=== PATIENT | male | born 1950 | race Caucasian/White ===

== ENCOUNTER 2018-12-08 09:49 | Inpatient (IN) ==
[~2018-12-08 09:49] MED LIST: GENTAMICIN INJ 160 MG in SODIUM CHLORIDE 0.9% 100 ML IV ONE; LEVOFLOXACIN 500 MG TABLET PO ONE
[2018-12-08] MEDS ORDERED: FAMOTIDINE 20 MG TABLET PO ONE (10:11)
[2018-12-08] MEDS ORDERED: DIAZEPAM 5 MG TABLET PO ONE (10:11)
[2018-12-08] MEDS ORDERED: LACTATED RINGERS 1,000 ML IV SCH (10:30)
[2018-12-08] MEDS ORDERED: DIAZEPAM 5 MG TABLET ONE (10:52)
[2018-12-08] MEDS ORDERED: LEVOFLOXACIN 500 MG TABLET ONE (10:53)
[2018-12-08] MEDS ORDERED: GENTAMICIN 80 MG/2 ML VIAL ONE (10:53)
[2018-12-08] MEDS ORDERED: FAMOTIDINE 20 MG TABLET ONE (10:53)
[2018-12-08] MEDS ORDERED: oxyCODONE/ACETAMINOPHEN 5-325 MG TABLET PO PRN (14:19)
[2018-12-08] MEDS ORDERED: diphenhydrAMINE 50 MG/1 ML VIAL IV PRN (14:19)
[2018-12-08] MEDS ORDERED: ONDANSETRON 4 MG/2 ML VIAL IV PRN ×2 (14:19→14:54)
[2018-12-08] MEDS ORDERED: HYDROmorphone 2 MG/1 ML VIAL IV PRN ×2 (14:23→14:54)
[2018-12-08] MEDS ORDERED: BELLADONNA/OPIUM 30 MG SUPP RECTAL PRN (14:24)
[2018-12-08] MEDS ORDERED: OXYBUTYNIN XL 5 MG TABLET PO PRN (14:24)
[2018-12-08] MEDS ORDERED: SEVOFLURANE 1 UNIT/15 MINUTE INH ONE (14:42)
[2018-12-08] MEDS ORDERED: PROPOFOL 200 MG/20 ML VIAL IV ONE (14:42)
[2018-12-08] MEDS ORDERED: fentaNYL 100 MCG/2 ML VIAL ONE (14:43)
[2018-12-08] MEDS ORDERED: ROCURONIUM 100 MG/10 ML VIAL IV ONE (14:43)
[2018-12-08] MEDS ORDERED: SUCCINYLCHOLINE 200 MG/10 ML VIAL ONE (14:43)
[2018-12-08] MEDS ORDERED: PHENYLEPHRINE 1 MG/10 ML SYRINGE IV ONE (14:43)
[2018-12-08] MEDS ORDERED: DEXAMETHASONE 4 MG/1 ML VIAL ONE (14:43)
[2018-12-08] MEDS ORDERED: LACTATED RINGERS 1,000 ML IV ONE (14:43)
[2018-12-08] MEDS ORDERED: ONDANSETRON 4 MG/2 ML VIAL ONE (14:43)
[2018-12-08 14:54] LABS: Basophils # 0.1 10*3/uL (0.0-0.2); Basophils % 0.5 % (0.0-0.8); Eosinophils # 0.1 10*3/uL (0.0-0.87); Eosinophils % 0.8 % (0.00-10.9); Hematocrit 42.4 VOL% (42.0-52.0); Hemoglobin 13.6 GM/DL (14.0-18.0); Immature Granulocytes % 0.7 %; Immature Granulocytes Absolute 0.11 #; Lymphocytes # 1.8 10*3/uL (1.4-4.0); Lymphocytes % 11.9 % (21.2-54.2); Mean Corpuscular HGB Conc 32.1 GM/DL (32-36); Mean Corpuscular Volume 91.6 FL (87-102); Mean Platelet Volume 9.1 FL (9.6-12.0); Monocytes % 5.5 % (1.7-12.7); Neutrophils % 80.6 % (38.7-73.9); Platelet Count 204 T/CUMM (130-400); Red Blood Count 4.63 MC/CUMM (3.8-5.5); Red Cell Distribution Width 13.3 % (9.3-17.3); White Blood Count 15.4 T/CUMM (4-12)
[2018-12-08] MEDS: ACETAMINOPHEN 325 MG TABLET PO SCH ×2 (16:08→20:33)
[2018-12-08] MEDS: SODIUM CHLORIDE 0.9% 1,000 ML IV SCH (16:18)
[2018-12-08 17:00] LABS: Calcium 7.5 MG/DL (8.5-10.1); Osmolality,Calculated 270.2 MOS/KG (273-304)
[2018-12-08] MEDS: CIPROFLOXACIN 500 MG TABLET PO SCH (20:32)
[2018-12-08] MEDS: FAMOTIDINE 20 MG TABLET PO SCH (20:33)
[2018-12-08] MEDS: DOCUSATE SODIUM 100 MG CAPSULE PO SCH (20:33)
[2018-12-08] MEDS: ceFAZolin 1,000 MG in SYRINGE 1 EACH IV SCH (22:14)
[2018-12-09] MEDS: SODIUM CHLORIDE 0.9% 1,000 ML IV SCH ×3 (00:18→15:01)
[2018-12-09] MEDS: ACETAMINOPHEN 325 MG TABLET PO SCH ×4 (03:03→20:18)
[2018-12-09 05:42] LABS: Calcium 7.6 MG/DL (8.5-10.1); Osmolality,Calculated 279.7 MOS/KG (273-304)
[2018-12-09 05:51] LABS: Basophils % 0.1 % (0.0-0.8); Eosinophils % 0.1 % (0.00-10.9); Hematocrit 39.7 VOL% (42.0-52.0); Hemoglobin 12.9 GM/DL (14.0-18.0); Immature Granulocytes % 1.4 %; Immature Granulocytes Absolute 0.22 #; Lymphocytes # 0.8 10*3/uL (1.4-4.0); Lymphocytes % 4.9 % (21.2-54.2); Mean Corpuscular HGB Conc 32.5 GM/DL (32-36); Mean Corpuscular Volume 90.4 FL (87-102); Mean Platelet Volume 9.8 FL (9.6-12.0); Monocytes % 9.6 % (1.7-12.7); Neutrophils % 83.9 % (38.7-73.9); Platelet Count 188 T/CUMM (130-400); Red Blood Count 4.39 MC/CUMM (3.8-5.5); Red Cell Distribution Width 13.2 % (9.3-17.3); White Blood Count 15.4 T/CUMM (4-12)
[2018-12-09] MEDS: ceFAZolin 1,000 MG in SYRINGE 1 EACH IV SCH (06:34)
[2018-12-09 06:45] LABS: Band Neutrophils 1 % (0-10); Lymphocytes 5 % (20-55); Metamyelocytes 1 %; Platelet Estimate Normal; Segmented Neutrophils 84 % (50-85); Total Cells Counted 100
[2018-12-09] MEDS ORDERED: LISINOPRIL 10 MG TABLET PO SCH (09:00)
[2018-12-09] MEDS: DOCUSATE SODIUM 100 MG CAPSULE PO SCH ×2 (09:34→20:18)
[2018-12-09] MEDS: FINASTERIDE 5 MG TABLET PO SCH (09:34)
[2018-12-09] MEDS: CIPROFLOXACIN 500 MG TABLET PO SCH ×2 (09:34→20:18)
[2018-12-09] MEDS: ATORVASTATIN 20 MG TABLET PO SCH (09:35)
[2018-12-09 09:42] LABS: Calcium 7.4 MG/DL (8.5-10.1); Osmolality,Calculated 282.4 MOS/KG (273-304)
[2018-12-09] MEDS: FAMOTIDINE 20 MG TABLET PO SCH (20:18)
[2018-12-10] MEDS: SODIUM CHLORIDE 0.9% 1,000 ML IV SCH ×2 (00:13→22:18)
[2018-12-10] MEDS: ACETAMINOPHEN 325 MG TABLET PO SCH ×4 (03:10→20:14)
[2018-12-10 05:14] LABS: Basophils % 0.3 % (0.0-0.8); Eosinophils # 0.1 10*3/uL (0.0-0.87); Hematocrit 38.3 VOL% (42.0-52.0); Immature Granulocytes % 0.2 %; Immature Granulocytes Absolute 0.02 #; Lymphocytes % 9.3 % (21.2-54.2); Mean Corpuscular HGB Conc 31.3 GM/DL (32-36); Mean Corpuscular Volume 91.4 FL (87-102); Mean Platelet Volume 9.9 FL (9.6-12.0); Monocytes % 12.3 % (1.7-12.7); Neutrophils % 76.9 % (38.7-73.9); Platelet Count 181 T/CUMM (130-400); Red Blood Count 4.19 MC/CUMM (3.8-5.5); Red Cell Distribution Width 13.9 % (9.3-17.3); White Blood Count 10.3 T/CUMM (4-12)
[2018-12-10 05:35] LABS: Calcium 7.5 MG/DL (8.5-10.1); Osmolality,Calculated 296.6 MOS/KG (273-304)
[2018-12-10] MEDS: DOCUSATE SODIUM 100 MG CAPSULE PO SCH ×2 (08:50→22:14)
[2018-12-10] MEDS: ATORVASTATIN 20 MG TABLET PO SCH (08:50)
[2018-12-10] MEDS: FINASTERIDE 5 MG TABLET PO SCH (08:50)
[2018-12-10] MEDS: DEXTROSE 5% NACL 0.45% 1,000 ML IV SCH (08:57)
[2018-12-10] MEDS: FAMOTIDINE 20 MG TABLET PO SCH (22:14)
[2018-12-11] MEDS: DEXTROSE 5% NACL 0.45% 1,000 ML IV SCH ×4 (01:16→22:48)
[2018-12-11] MEDS: ACETAMINOPHEN 325 MG TABLET PO SCH ×4 (02:16→21:07)
[2018-12-11 06:15] LABS: Calcium 7.9 MG/DL (8.5-10.1)
[2018-12-11] MEDS ORDERED: cefTRIAXone 1,000 MG in SYRINGE 1 EACH IV ONE (08:06)
[2018-12-11] MEDS ORDERED: SEVOFLURANE 1 UNIT/15 MINUTE INH ONE (10:03)
[2018-12-11] MEDS ORDERED: PROPOFOL 200 MG/20 ML VIAL IV ONE (10:03)
[2018-12-11] MEDS ORDERED: PHENYLEPHRINE 1 MG/10 ML SYRINGE IV ONE (10:04)
[2018-12-11] MEDS ORDERED: MIDAZOLAM 2 MG/2 ML VIAL ONE (10:04)
[2018-12-11] MEDS ORDERED: DEXAMETHASONE 4 MG/1 ML VIAL ONE (10:04)
[2018-12-11] MEDS ORDERED: ACETAMINOPHEN 1,000 MG/100 ML VIAL IV ONE (10:04)
[2018-12-11] MEDS ORDERED: ONDANSETRON 4 MG/2 ML VIAL ONE (10:04)
[2018-12-11] MEDS ORDERED: fentaNYL 100 MCG/2 ML VIAL ONE (10:04)
[2018-12-11] MEDS: FINASTERIDE 5 MG TABLET PO SCH (10:38)
[2018-12-11] MEDS: ATORVASTATIN 20 MG TABLET PO SCH (10:38)
[2018-12-11] MEDS: DOCUSATE SODIUM 100 MG CAPSULE PO SCH ×2 (10:38→21:07)
[2018-12-11] MEDS ORDERED: LIDOCAINE 2% TOP JELLY 5 ML TUBE TOP ONE (13:30)
[2018-12-11 16:03] LABS: Apearance,Urine CLEAR (Clear); Bilirubin,Urine Negative (Negative); Blood, Urine Large mg/dL (Negative); Glucose,Urine (UA) Negative (Negative); Ketones,Urine Negative (Negative); Nitrite,Urine Negative (Negative); Protein,Urine 30 MG/DL; RBC,Urine 4527 /HPF (0-4); Squamous Epithelial Cell,Urine Occasional /HPF (0-10); Urine Color Red (Yellow); Urine Urobilinogen < 2.0 EU/DL (0.2-1.0); WBC,Urine 127 /HPF (0-6)
[2018-12-11] MEDS: FAMOTIDINE 20 MG TABLET PO SCH (21:07)
[2018-12-12] MEDS: ACETAMINOPHEN 325 MG TABLET PO SCH ×2 (02:54→08:38)
[2018-12-12 04:32] LABS: Basophils % 0.1 % (0.0-0.8); Eosinophils % 0.2 % (0.00-10.9); Hematocrit 34.4 VOL% (42.0-52.0); Hemoglobin 10.9 GM/DL (14.0-18.0); Immature Granulocytes % 0.5 %; Immature Granulocytes Absolute 0.07 #; Lymphocytes # 1.2 10*3/uL (1.4-4.0); Lymphocytes % 8.4 % (21.2-54.2); Mean Corpuscular HGB Conc 31.7 GM/DL (32-36); Mean Platelet Volume 10.1 FL (9.6-12.0); Monocytes % 10.7 % (1.7-12.7); Neutrophils % 80.1 % (38.7-73.9); Platelet Count 163 T/CUMM (130-400); Red Blood Count 3.78 MC/CUMM (3.8-5.5); Red Cell Distribution Width 13.3 % (9.3-17.3); White Blood Count 14.1 T/CUMM (4-12)
[2018-12-12 04:54] LABS: Calcium 7.5 MG/DL (8.5-10.1); Osmolality,Calculated 286.3 MOS/KG (273-304)
[2018-12-12] MEDS: DOCUSATE SODIUM 100 MG CAPSULE PO SCH (08:38)
[2018-12-12] MEDS: FINASTERIDE 5 MG TABLET PO SCH (08:38)
[2018-12-12] MEDS: ATORVASTATIN 20 MG TABLET PO SCH (08:38)
[2018-12-12] MEDS: DEXTROSE 5% NACL 0.45% 1,000 ML IV SCH (10:08)
[2018-12-12] MEDS ORDERED: cefTRIAXone 1,000 MG in SYRINGE 1 EACH IV ONE (11:17)
[2018-12-12 13:22] VITALS: BP 121/70
[2018-12-12 15:09] LABS: Calcium 7.5 MG/DL (8.5-10.1); Osmolality,Calculated 281.4 MOS/KG (273-304)
[2018-12-15 08:02] LABS: Calcium 8.8 MG/DL (8.5-10.1); Osmolality,Calculated 281.4 MOS/KG (273-304)
== END 2018-12-12 16:42 | disposition home or self-care (01) | DRG 660 ==
LOC: N.5E 09:49 → N.OR 09:49 → N.SDSINP 09:51 → N.5E 15:30
PROVIDERS: ADMIT Surgery; ATTEND Surgery

== ENCOUNTER 2022-05-13 14:32 | Observation (INO) ==
[2022-05-13] MEDS ORDERED: ONDANSETRON 4 MG/2 ML VIAL IV STA (21:13)
[2022-05-13] MEDS ORDERED: ASPIRIN 325 MG TABLET PO STA (21:13)
[2022-05-13 21:35] LABS: Basophils % 0.3 % (0.0-0.8); Eosinophils # 0.1 10*3/uL (0.0-0.87); Eosinophils % 1.6 % (0.00-10.9); Hematocrit 42.7 VOL% (42.0-52.0); Hemoglobin 13.5 GM/DL (14.0-18.0); Immature Granulocytes % 0.4 %; Immature Granulocytes Absolute 0.03 #; Lymphocytes # 0.9 10*3/uL (1.4-4.0); Lymphocytes % 13.1 % (21.2-54.2); Mean Corpuscular HGB Conc 31.6 GM/DL (32-36); Mean Corpuscular Volume 95.1 FL (87-102); Mean Platelet Volume 8.5 FL (9.6-12.0); Monocytes % 14.5 % (1.7-12.7); Neutrophils % 70.1 % (38.7-73.9); Platelet Count 180 T/CUMM (130-400); Red Blood Count 4.49 MC/CUMM (3.8-5.5); Red Cell Distribution Width 14.7 % (9.3-17.3)
[2022-05-13 21:45] LABS: PT Patient Result 11.2 SECS (10.1-12.1)
[2022-05-13 22:07] LABS: Alanine Aminotransferase 19 U/L (16-61); Albumin 3.2 G/DL (3.4-5.0); Alkaline Phosphatase 72 U/L (45-117); Aspartate Amino Transferase 20 U/L (0-37); Blood Urea Nitrogen 20 MG/DL (7-18); Calcium 8.6 MG/DL (8.5-10.1); Carbon Dioxide 27 MMOL/L (21-32); Chloride 107 MMOL/L (98-107); Glucose 86 MG/DL (74-106); Osmolality,Calculated 280.4 MOS/KG (273-304); Potassium 4.2 MMOL/L (3.5-5.1); Sodium 140 MMOL/L (136-145); Total Protein 6.8 G/DL (6.4-8.2)
[2022-05-13 22:37] LABS: Mucus,Urine Occasional /LPF (Occasional); RBC,Urine 14 /HPF (0-4); Squamous Epithelial Cell,Urine Occasional /HPF (0-10)
[2022-05-13 22:41] LABS: Bilirubin,Urine Small mg/dL (Negative); Blood, Urine Trace mg/dL (Negative); Glucose,Urine (UA) Negative (Negative); Ketones,Urine Trace mg/dL (Negative); Nitrite,Urine Negative (Negative); Protein,Urine 30 mg/dL (Negative); Urine Appearance Clear (Clear); Urine Color Yellow (Yellow); Urine Specific Gravity >= 1.030 (1.001-1.035); Urine pH 5.5 (4.5-8.0)
[2022-05-13 22:44] LABS: Barbiturates Screen,Urine Negative (Negative); Benzodiazepines Screen,Urine Negative (Negative); Cannabinoid Screen,Urine Negative (Negative); Opiate Screen,Urine Negative (Negative); Phencyclidine Screen,Urine Negative (Negative)
[2022-05-14] MEDS ORDERED: DEXTROSE 10% 250 ML BAG IV PRN (00:14)
[2022-05-14] MEDS ORDERED: GLUCAGON 1 MG VIAL IM PRN (00:14)
[2022-05-14] MEDS ORDERED: hydrALAZINE 20 MG/1 ML VIAL IV PRN (00:19)
[2022-05-14] MEDS ORDERED: ZALEPLON 5 MG CAPSULE PO PRN (00:19)
[2022-05-14] MEDS ORDERED: ONDANSETRON 4 MG/2 ML VIAL IV PRN (00:19)
[2022-05-14] MEDS ORDERED: DOCUSATE SODIUM 100 MG CAPSULE PO PRN (00:19)
[2022-05-14] MEDS ORDERED: diphenhydrAMINE CAP 25 MG CAPSULE PO PRN (00:19)
[2022-05-14] MEDS ORDERED: ACETAMINOPHEN 325 MG TABLET PO PRN (00:19)
[2022-05-14] MEDS ORDERED: NICOTINE 21 MG/24 HR PATCH TRANSDERM PRN (00:19)
[2022-05-14] MEDS ORDERED: guaiFENesin/DM ER 600-30 MG TABLET PO PRN (00:19)
[2022-05-14] MEDS ORDERED: SODIUM CHLORIDE 0.9% 1,000 ML IV SCH (00:30)
[2022-05-14 04:53] LABS: Basophils % 0.4 % (0.0-0.8); Eosinophils # 0.2 10*3/uL (0.0-0.87); Eosinophils % 3.2 % (0.00-10.9); Hematocrit 40.2 VOL% (42.0-52.0); Hemoglobin 12.6 GM/DL (14.0-18.0); Immature Granulocytes % 0.4 %; Immature Granulocytes Absolute 0.03 #; Lymphocytes # 1.1 10*3/uL (1.4-4.0); Lymphocytes % 15.4 % (21.2-54.2); Mean Corpuscular HGB Conc 31.3 GM/DL (32-36); Mean Corpuscular Volume 95.7 FL (87-102); Mean Platelet Volume 8.9 FL (9.6-12.0); Monocytes # 0.9 10*3/uL (0.11-0.8); Monocytes % 13.8 % (1.7-12.7); Neutrophils % 66.8 % (38.7-73.9); Platelet Count 166 T/CUMM (130-400); Red Cell Distribution Width 14.6 % (9.3-17.3); White Blood Count 6.8 T/CUMM (4-12)
[2022-05-14 05:09] LABS: Calcium 8.7 MG/DL (8.5-10.1); Osmolality,Calculated 277.5 MOS/KG (273-304); Potassium 3.6 MMOL/L (3.5-5.1)
[2022-05-14] MEDS ORDERED: CLOPIDOGREL 75 MG TABLET PO SCH (09:00)
[2022-05-14] MEDS ORDERED: PANTOPRAZOLE 40 MG TABLET PO SCH (09:00)
[2022-05-14] MEDS ORDERED: ATORVASTATIN 20 MG TABLET PO SCH (09:00)
[2022-05-14] MEDS ORDERED: FINASTERIDE 5 MG TABLET PO SCH (09:00)
[2022-05-14] MEDS ORDERED: HEPARIN 5,000 UNIT/1 ML VIAL SUBCUT SCH (09:00)
[2022-05-14] MEDS ORDERED: predniSONE 5 MG TABLET PO SCH (09:00)
[2022-05-14] MEDS ORDERED: lisinopriL 10 MG TABLET PO SCH (09:00)
[2022-05-14 13:20] VITALS: BP 138/102
[2022-05-20] MEDS ORDERED: METHOTREXATE 2.5 MG TABLET PO SCH (09:00)
== END 2022-05-14 15:43 | disposition home or self-care (01) ==
LOC: N.ED 14:32 → N.2W 14:32
PROVIDERS: ADMIT Internal Medicine; ATTEND Internal Medicine

== ENCOUNTER 2022-08-06 11:38 | Inpatient (IN) ==
[2022-08-06] MEDS ORDERED: ALBUTEROL 2.5 MG/3 ML NEB RESP TX STA (16:41)
[2022-08-06 16:46] LABS: Basophils % 0.3 % (0.0-0.8); Eosinophils # 0.1 10*3/uL (0.0-0.87); Eosinophils % 0.7 % (0.00-10.9); Hemoglobin 13.5 GM/DL (14.0-18.0); Immature Granulocytes % 0.5 %; Immature Granulocytes Absolute 0.06 #; Lymphocytes # 1.1 10*3/uL (1.4-4.0); Lymphocytes % 9.3 % (21.2-54.2); Mean Corpuscular HGB Conc 32.9 GM/DL (32-36); Mean Corpuscular Volume 97.2 FL (87-102); Mean Platelet Volume 8.7 FL (9.6-12.0); Monocytes # 0.9 10*3/uL (0.11-0.8); Monocytes % 7.6 % (1.7-12.7); Neutrophils % 81.6 % (38.7-73.9); Platelet Count 395 T/CUMM (130-400); Red Blood Count 4.22 MC/CUMM (3.8-5.5); Red Cell Distribution Width 14.2 % (9.3-17.3); White Blood Count 11.8 T/CUMM (4-12)
[2022-08-06] MEDS ORDERED: LEVOFLOXACIN INJ 500 MG/100 ML PREMIX IV STA (16:46)
[2022-08-06] MEDS ORDERED: methylPREDNISolone SOD SUC 125 MG/2 ML VIAL IV STA (16:47)
[2022-08-06 17:02] LABS: Osmolality,Calculated 277.7 MOS/KG (273-304); Potassium 3.5 MMOL/L (3.5-5.1)
[2022-08-06 17:59] LABS: Albumin 3.1 G/DL (3.4-5.0); Bilirubin,Direct 0.16 MG/DL (0.0-0.20); Bilirubin,Indirect 0.4 MG/DL (0.0-1.0); Bilirubin,Total 0.6 MG/DL (0.20-1.00); Total Protein 8.2 G/DL (6.4-8.2)
[2022-08-06] MEDS ORDERED: CALCIUM CARBONATE CHEW 500 MG TABLET PO PRN (18:28)
[2022-08-06] MEDS ORDERED: ACETAMINOPHEN 325 MG TABLET PO PRN (18:28)
[2022-08-06] MEDS ORDERED: DOCUSATE SODIUM 100 MG CAPSULE PO PRN (18:28)
[2022-08-06] MEDS: ALBUTEROL/IPRATROPIUM 3 ML NEB RESP TX SCH (19:30)
[2022-08-06] MEDS: hydrALAZINE 20 MG/1 ML VIAL IV PRN (21:05)
[2022-08-06] MEDS: ENOXAPARIN 40 MG/0.4 ML SYRINGE SUBCUT SCH (21:25)
[2022-08-07] MEDS: ALBUTEROL/IPRATROPIUM 3 ML NEB RESP TX SCH ×4 (00:42→19:38)
[2022-08-07 01:57] LABS: Basophils % 0.1 % (0.0-0.8); Hematocrit 36.3 VOL% (42.0-52.0); Hemoglobin 11.9 GM/DL (14.0-18.0); Immature Granulocytes Absolute 0.11 #; Lymphocytes # 0.4 10*3/uL (1.4-4.0); Lymphocytes % 3.3 % (21.2-54.2); Mean Corpuscular HGB Conc 32.8 GM/DL (32-36); Mean Corpuscular Volume 97.3 FL (87-102); Mean Platelet Volume 8.7 FL (9.6-12.0); Monocytes # 0.1 10*3/uL (0.11-0.8); Monocytes % 1.1 % (1.7-12.7); Neutrophils % 94.5 % (38.7-73.9); Platelet Count 344 T/CUMM (130-400); Red Blood Count 3.73 MC/CUMM (3.8-5.5); Red Cell Distribution Width 14.3 % (9.3-17.3); White Blood Count 10.9 T/CUMM (4-12)
[2022-08-07 02:13] LABS: Calcium 8.9 MG/DL (8.5-10.1); Potassium 3.8 MMOL/L (3.5-5.1)
[2022-08-07 02:46] LABS: Lymphocytes 3 % (20-55); Platelet Estimate Normal; Total Cells Counted 100
[2022-08-07] MEDS: cefTRIAXone 1,000 MG in SODIUM CHLORIDE 0.9% 100 ML IV SCH (17:10)
[2022-08-07] MEDS: methylPREDNISolone SOD SUC 40 MG/1 ML VIAL IV SCH ×2 (17:11→23:46)
[2022-08-07] MEDS: ENOXAPARIN 40 MG/0.4 ML SYRINGE SUBCUT SCH (21:21)
[2022-08-08] MEDS: ALBUTEROL/IPRATROPIUM 3 ML NEB RESP TX SCH ×4 (01:03→19:52)
[2022-08-08 08:33] LABS: Basophils % 0.1 % (0.0-0.8); Hematocrit 38.4 VOL% (42.0-52.0); Hemoglobin 12.4 GM/DL (14.0-18.0); Immature Granulocytes Absolute 0.15 #; Lymphocytes # 0.7 10*3/uL (1.4-4.0); Lymphocytes % 4.7 % (21.2-54.2); Mean Corpuscular HGB Conc 32.3 GM/DL (32-36); Mean Corpuscular Volume 100.3 FL (87-102); Mean Platelet Volume 8.9 FL (9.6-12.0); Monocytes # 0.4 10*3/uL (0.11-0.8); Monocytes % 2.9 % (1.7-12.7); Neutrophils % 91.3 % (38.7-73.9); Platelet Count 349 T/CUMM (130-400); Red Blood Count 3.83 MC/CUMM (3.8-5.5); Red Cell Distribution Width 14.2 % (9.3-17.3); White Blood Count 15.1 T/CUMM (4-12)
[2022-08-08 08:54] LABS: Lymphocytes 2 % (20-55); Platelet Estimate Adequate; Total Cells Counted 100
[2022-08-08] MEDS: PANTOPRAZOLE 40 MG TABLET PO SCH (08:58)
[2022-08-08] MEDS: ATORVASTATIN 20 MG TABLET PO SCH (08:58)
[2022-08-08] MEDS: ASPIRIN EC 81 MG TABLET PO SCH (08:58)
[2022-08-08] MEDS: methylPREDNISolone SOD SUC 40 MG/1 ML VIAL IV SCH ×2 (08:59→16:19)
[2022-08-08] MEDS: FOLIC ACID 1 MG TABLET PO SCH (08:59)
[2022-08-08] MEDS ORDERED: predniSONE 5 MG TABLET PO SCH (09:00)
[2022-08-08] MEDS ORDERED: LEVOFLOXACIN INJ 500 MG/100 ML PREMIX IV SCH (09:00)
[2022-08-08 09:07] LABS: Calcium 9.6 MG/DL (8.5-10.1); Osmolality,Calculated 276.2 MOS/KG (273-304); Potassium 4.3 MMOL/L (3.5-5.1)
[2022-08-08] MEDS ORDERED: FUROSEMIDE 40 MG/4 ML VIAL IV ONE (10:00)
[2022-08-08] MEDS ORDERED: REMDESIVIR 200 MG in SODIUM CHLORIDE 0.9% 210 ML IV ONE (11:00)
[2022-08-08 11:14] LABS: Ferritin 720.2 ng/mL (26-388)
[2022-08-08] MEDS: ENOXAPARIN 40 MG/0.4 ML SYRINGE SUBCUT SCH ×2 (11:22→21:05)
[2022-08-08] MEDS: ASCORBIC ACID 500 MG TABLET PO SCH ×2 (11:22→21:04)
[2022-08-08] MEDS: CETIRIZINE 10 MG TABLET PO SCH (11:23)
[2022-08-08] MEDS ORDERED: CHOLECALCIFEROL 1,000 UNIT TABLET PO SCH (12:00)
[2022-08-08] MEDS ORDERED: ZINC GLUCONATE 50 MG TABLET PO SCH (12:00)
[2022-08-08] MEDS: cefTRIAXone 1,000 MG in SODIUM CHLORIDE 0.9% 100 ML IV SCH (16:19)
[2022-08-08] MEDS: guaiFENesin/DM ER 600-30 MG TABLET PO PRN (21:04)
[2022-08-09] MEDS: methylPREDNISolone SOD SUC 40 MG/1 ML VIAL IV SCH ×5 (00:34→23:29)
[2022-08-09] MEDS: ALBUTEROL/IPRATROPIUM 3 ML NEB RESP TX SCH ×4 (00:40→19:08)
[2022-08-09 06:17] LABS: Basophils % 0.1 % (0.0-0.8); Hematocrit 38.8 VOL% (42.0-52.0); Immature Granulocytes % 1.3 %; Immature Granulocytes Absolute 0.21 #; Lymphocytes # 0.3 10*3/uL (1.4-4.0); Lymphocytes % 1.9 % (21.2-54.2); Mean Corpuscular HGB Conc 30.9 GM/DL (32-36); Mean Corpuscular Volume 102.9 FL (87-102); Mean Platelet Volume 8.7 FL (9.6-12.0); Monocytes # 0.8 10*3/uL (0.11-0.8); Monocytes % 4.7 % (1.7-12.7); Platelet Count 371 T/CUMM (130-400); Red Blood Count 3.77 MC/CUMM (3.8-5.5); White Blood Count 16.8 T/CUMM (4-12)
[2022-08-09 06:36] LABS: Calcium 9.4 MG/DL (8.5-10.1); Osmolality,Calculated 283.8 MOS/KG (273-304); Potassium 4.4 MMOL/L (3.5-5.1)
[2022-08-09 06:40] LABS: Ferritin 992.9 ng/mL (26-388)
[2022-08-09 06:52] LABS: Hypochromia Slight; Lymphocytes 2 % (20-55); Platelet Estimate Adequate; Total Cells Counted 100
[2022-08-09] MEDS ORDERED: methylPREDNISolone SOD SUC 40 MG/1 ML VIAL IV SCH (09:00)
[2022-08-09] MEDS: ZINC SULFATE 220 MG CAPSULE PO SCH (09:55)
[2022-08-09] MEDS: ASPIRIN EC 81 MG TABLET PO SCH (09:55)
[2022-08-09] MEDS: CETIRIZINE 10 MG TABLET PO SCH (09:55)
[2022-08-09] MEDS: ASCORBIC ACID 500 MG TABLET PO SCH ×2 (09:55→20:38)
[2022-08-09] MEDS: ATORVASTATIN 20 MG TABLET PO SCH (09:55)
[2022-08-09] MEDS: guaiFENesin/DM ER 600-30 MG TABLET PO PRN (09:55)
[2022-08-09] MEDS: FOLIC ACID 1 MG TABLET PO SCH (09:55)
[2022-08-09] MEDS: PANTOPRAZOLE 40 MG TABLET PO SCH (09:55)
[2022-08-09] MEDS: CHOLECALCIFEROL 5,000 UNIT TABLET PO SCH ×2 (09:56→20:38)
[2022-08-09] MEDS: LACTATED RINGERS 1,000 ML IV SCH ×2 (09:56→23:45)
[2022-08-09] MEDS: AZITHROMYCIN INJ 500 MG in SODIUM CHLORIDE 0.9% 250 ML IV SCH (09:56)
[2022-08-09] MEDS: ENOXAPARIN 40 MG/0.4 ML SYRINGE SUBCUT SCH ×2 (09:58→20:39)
[2022-08-09] MEDS ORDERED: REMDESIVIR 100 MG in SODIUM CHLORIDE 0.9% 100 ML IV SCH (10:00)
[2022-08-09] MEDS: cefTRIAXone 1,000 MG in SODIUM CHLORIDE 0.9% 100 ML IV SCH (16:30)
[2022-08-09] MEDS: MELATONIN 3 MG TABLET PO SCH (20:38)
[2022-08-10] MEDS: ALBUTEROL/IPRATROPIUM 3 ML NEB RESP TX SCH ×4 (00:54→19:19)
[2022-08-10] MEDS: guaiFENesin/DM ER 600-30 MG TABLET PO PRN (03:30)
[2022-08-10] MEDS: methylPREDNISolone SOD SUC 40 MG/1 ML VIAL IV SCH ×4 (05:06→23:38)
[2022-08-10 05:22] LABS: Basophils % 0.1 % (0.0-0.8); Hematocrit 36.4 VOL% (42.0-52.0); Hemoglobin 11.6 GM/DL (14.0-18.0); Immature Granulocytes % 0.7 %; Immature Granulocytes Absolute 0.13 #; Lymphocytes # 0.3 10*3/uL (1.4-4.0); Lymphocytes % 1.4 % (21.2-54.2); Mean Corpuscular HGB Conc 31.9 GM/DL (32-36); Mean Corpuscular Volume 100.6 FL (87-102); Mean Platelet Volume 9.1 FL (9.6-12.0); Monocytes # 1.1 10*3/uL (0.11-0.8); Monocytes % 6.3 % (1.7-12.7); Neutrophils % 91.5 % (38.7-73.9); Platelet Count 355 T/CUMM (130-400); Red Blood Count 3.62 MC/CUMM (3.8-5.5); Red Cell Distribution Width 14.2 % (9.3-17.3)
[2022-08-10 05:27] LABS: Calcium 9.1 MG/DL (8.5-10.1); Osmolality,Calculated 293.1 MOS/KG (273-304); Potassium 4.2 MMOL/L (3.5-5.1)
[2022-08-10 05:33] LABS: Ferritin 761.8 ng/mL (26-388)
[2022-08-10 06:18] LABS: Lymphocytes 2 % (20-55); Total Cells Counted 100
[2022-08-10] MEDS: AZITHROMYCIN INJ 500 MG in SODIUM CHLORIDE 0.9% 250 ML IV SCH (09:14)
[2022-08-10] MEDS: ENOXAPARIN 40 MG/0.4 ML SYRINGE SUBCUT SCH ×2 (09:15→21:32)
[2022-08-10] MEDS: ASCORBIC ACID 500 MG TABLET PO SCH ×2 (09:15→21:33)
[2022-08-10] MEDS: LACTATED RINGERS 1,000 ML IV SCH ×3 (09:15→21:40)
[2022-08-10] MEDS: FOLIC ACID 1 MG TABLET PO SCH (09:16)
[2022-08-10] MEDS: CHOLECALCIFEROL 5,000 UNIT TABLET PO SCH ×2 (09:16→21:33)
[2022-08-10] MEDS: ZINC SULFATE 220 MG CAPSULE PO SCH (09:16)
[2022-08-10] MEDS: ATORVASTATIN 20 MG TABLET PO SCH (09:16)
[2022-08-10] MEDS: CETIRIZINE 10 MG TABLET PO SCH (09:16)
[2022-08-10] MEDS: PANTOPRAZOLE 40 MG TABLET PO SCH (09:16)
[2022-08-10] MEDS: ASPIRIN EC 81 MG TABLET PO SCH (09:16)
[2022-08-10] MEDS ORDERED: guaiFENesin 200 MG/10 ML UDCUP PO PRN (15:36)
[2022-08-10] MEDS: cefTRIAXone 1,000 MG in SODIUM CHLORIDE 0.9% 100 ML IV SCH (16:25)
[2022-08-10 20:56] LABS: Arterial Base Excess iSTAT 3 MMOL/L (-2.5-2.5); Arterial Bicarbonate iSTAT 27.4 MMOL/L (20-26); Arterial O2 Saturation iSTAT 85 % (95-100); Arterial PCO2 iSTAT 41 MM HG (35-48); Arterial PO2 iSTAT 49 MM HG (80-95); Arterial Total CO2 iSTAT 29 MMO/L (23-27); Arterial pH iSTAT 7.436 (7.35-7.45)
[2022-08-10] MEDS: MELATONIN 3 MG TABLET PO SCH (21:32)
[2022-08-10] MEDS ORDERED: CLORAZEPATE 3.75 MG TABLET PO ONE (23:16)
[2022-08-10] MEDS: ACETAMINOPHEN 325 MG TABLET PO PRN (23:38)
[2022-08-10 23:47] LABS: Bilirubin,Urine Negative (Negative); Blood, Urine Negative (Negative); Glucose,Urine (UA) Negative (Negative); Ketones,Urine Negative (Negative); Nitrite,Urine Negative (Negative); Protein,Urine Negative (Negative); Urine Appearance Clear (Clear); Urine Color Yellow (Yellow); Urine Urobilinogen 0.2 eU/dL (<2.0); Urine pH 6.5 (4.5-8.0)
[2022-08-10 23:49] LABS: Bacteria,Urine Occasional /HPF (Few); Mucus,Urine Occasional /LPF (Occasional); RBC,Urine <1 /HPF (0-4); Squamous Epithelial Cell,Urine Occasional /HPF (0-10)
[2022-08-11] MEDS: ALBUTEROL/IPRATROPIUM 3 ML NEB RESP TX SCH ×4 (00:27→19:40)
[2022-08-11] MEDS: LACTATED RINGERS 1,000 ML IV SCH ×2 (01:24→13:47)
[2022-08-11 04:15] LABS: Basophils % 0.1 % (0.0-0.8); Hematocrit 35.9 VOL% (42.0-52.0); Hemoglobin 11.4 GM/DL (14.0-18.0); Immature Granulocytes % 1.5 %; Immature Granulocytes Absolute 0.26 #; Lymphocytes # 0.2 10*3/uL (1.4-4.0); Lymphocytes % 1.2 % (21.2-54.2); Mean Corpuscular HGB Conc 31.8 GM/DL (32-36); Mean Corpuscular Volume 99.7 FL (87-102); Mean Platelet Volume 8.8 FL (9.6-12.0); Monocytes # 0.9 10*3/uL (0.11-0.8); Monocytes % 5.2 % (1.7-12.7); Platelet Count 343 T/CUMM (130-400); Red Cell Distribution Width 14.4 % (9.3-17.3); White Blood Count 17.1 T/CUMM (4-12)
[2022-08-11 04:35] LABS: Lymphocytes 1 % (20-55); Platelet Estimate Normal; Total Cells Counted 100
[2022-08-11 04:42] LABS: Calcium 8.6 MG/DL (8.5-10.1); Osmolality,Calculated 286.4 MOS/KG (273-304); Potassium 4.6 MMOL/L (3.5-5.1)
[2022-08-11] MEDS: methylPREDNISolone SOD SUC 40 MG/1 ML VIAL IV SCH ×3 (05:00→18:13)
[2022-08-11] MEDS: ASPIRIN EC 81 MG TABLET PO SCH (09:03)
[2022-08-11] MEDS: FOLIC ACID 1 MG TABLET PO SCH (09:04)
[2022-08-11] MEDS: ZINC SULFATE 220 MG CAPSULE PO SCH (09:04)
[2022-08-11] MEDS: ENOXAPARIN 40 MG/0.4 ML SYRINGE SUBCUT SCH ×2 (09:04→20:56)
[2022-08-11] MEDS: PANTOPRAZOLE 40 MG TABLET PO SCH (09:04)
[2022-08-11] MEDS: ASCORBIC ACID 500 MG TABLET PO SCH ×2 (09:04→22:15)
[2022-08-11] MEDS: CHOLECALCIFEROL 5,000 UNIT TABLET PO SCH ×2 (09:04→22:15)
[2022-08-11] MEDS: ATORVASTATIN 20 MG TABLET PO SCH (09:04)
[2022-08-11] MEDS: CETIRIZINE 10 MG TABLET PO SCH (09:05)
[2022-08-11] MEDS: REMDESIVIR 100 MG in SODIUM CHLORIDE 0.9% 100 ML IV SCH (12:57)
[2022-08-11] MEDS: ALPRAZolam 0.25 MG TABLET PO PRN ×2 (12:58→20:56)
[2022-08-11] MEDS: SULFAMETHOX/TRIMETHOPRIM 800-160 MG TABLET PO SCH (13:48)
[2022-08-11] MEDS: AZITHROMYCIN INJ 500 MG in SODIUM CHLORIDE 0.9% 250 ML IV SCH (13:48)
[2022-08-11] MEDS: MICAFUNGIN 150 MG in SODIUM CHLORIDE 0.9% 100 ML IV SCH (18:12)
[2022-08-11] MEDS: hydrALAZINE 20 MG/1 ML VIAL IV PRN (20:22)
[2022-08-11] MEDS: cefTRIAXone 1,000 MG in SODIUM CHLORIDE 0.9% 100 ML IV SCH (20:55)
[2022-08-11] MEDS: MELATONIN 3 MG TABLET PO SCH (20:57)
[2022-08-11] MEDS ORDERED: LORazepam 2 MG/1 ML VIAL IV ONE (21:24)
[2022-08-12] MEDS: ALBUTEROL/IPRATROPIUM 3 ML NEB RESP TX SCH ×4 (00:40→18:56)
[2022-08-12] MEDS: methylPREDNISolone SOD SUC 40 MG/1 ML VIAL IV SCH ×2 (00:45→06:37)
[2022-08-12] MEDS: SULFAMETHOX/TRIMETHOPRIM 800-160 MG TABLET PO SCH ×2 (01:59→12:38)
[2022-08-12] MEDS: LACTATED RINGERS 1,000 ML IV SCH ×3 (03:34→21:40)
[2022-08-12 03:55] LABS: Basophils % 0.1 % (0.0-0.8); Hematocrit 36.4 VOL% (42.0-52.0); Hemoglobin 11.4 GM/DL (14.0-18.0); Immature Granulocytes % 0.8 %; Immature Granulocytes Absolute 0.14 #; Lymphocytes # 0.3 10*3/uL (1.4-4.0); Lymphocytes % 1.7 % (21.2-54.2); Mean Corpuscular HGB Conc 31.3 GM/DL (32-36); Mean Corpuscular Volume 99.2 FL (87-102); Mean Platelet Volume 8.9 FL (9.6-12.0); Monocytes # 0.8 10*3/uL (0.11-0.8); Monocytes % 4.9 % (1.7-12.7); Neutrophils % 92.5 % (38.7-73.9); Platelet Count 289 T/CUMM (130-400); Red Blood Count 3.67 MC/CUMM (3.8-5.5); Red Cell Distribution Width 14.1 % (9.3-17.3); White Blood Count 17.3 T/CUMM (4-12)
[2022-08-12 04:16] LABS: Albumin 2.3 G/DL (3.4-5.0); Bilirubin,Total 0.4 MG/DL (0.20-1.00); Calcium 8.6 MG/DL (8.5-10.1); Lymphocytes 1 % (20-55); Osmolality,Calculated 285.5 MOS/KG (273-304); Platelet Estimate Adequate; Potassium 4.8 MMOL/L (3.5-5.1); Total Cells Counted 100
[2022-08-12 05:16] LABS: Arterial Base Excess iSTAT 3 MMOL/L (-2.5-2.5); Arterial O2 Saturation iSTAT 89 % (95-100); Arterial PCO2 iSTAT 53 MM HG (35-48); Arterial PO2 iSTAT 60 MM HG (80-95); Arterial Total CO2 iSTAT 32 MMO/L (23-27)
[2022-08-12] MEDS ORDERED: ETOMIDATE 20 MG/10 ML VIAL IV ONE ×2 (05:39→05:48)
[2022-08-12] MEDS ORDERED: VECURONIUM 10 MG VIAL IV ONE ×2 (05:39→05:49)
[2022-08-12] MEDS ORDERED: MIDAZOLAM 2 MG/2 ML VIAL ONE (05:48)
[2022-08-12] MEDS ORDERED: MIDAZOLAM 2 MG/2 ML VIAL IV ONE ×3 (05:50→12:31)
[2022-08-12 07:07] LABS: Arterial Base Excess iSTAT 6 MMOL/L (-2.5-2.5); Arterial Bicarbonate iSTAT 33.9 MMOL/L (20-26); Arterial O2 Saturation iSTAT 100 % (95-100); Arterial PCO2 iSTAT 64 MM HG (35-48); Arterial PO2 iSTAT 319 MM HG (80-95); Arterial Total CO2 iSTAT 36 MMO/L (23-27); Arterial pH iSTAT 7.334 (7.35-7.45)
[2022-08-12] MEDS: hydrALAZINE 20 MG/1 ML VIAL IV PRN (07:15)
[2022-08-12] MEDS: CETIRIZINE 10 MG TABLET PO SCH (08:35)
[2022-08-12] MEDS: ZINC SULFATE 220 MG CAPSULE PO SCH (08:35)
[2022-08-12] MEDS: FOLIC ACID 1 MG TABLET PO SCH (08:35)
[2022-08-12] MEDS: CHOLECALCIFEROL 5,000 UNIT TABLET PO SCH ×2 (08:35→20:37)
[2022-08-12] MEDS: ASPIRIN EC 81 MG TABLET PO SCH (08:35)
[2022-08-12] MEDS: PANTOPRAZOLE 40 MG TABLET PO SCH (08:35)
[2022-08-12] MEDS: ENOXAPARIN 40 MG/0.4 ML SYRINGE SUBCUT SCH ×2 (08:35→20:37)
[2022-08-12] MEDS: ASCORBIC ACID 500 MG TABLET PO SCH ×2 (08:35→20:37)
[2022-08-12] MEDS: ATORVASTATIN 20 MG TABLET PO SCH (08:35)
[2022-08-12] MEDS: fentaNYL INJ 1,250 MCG in SODIUM CHLORIDE 0.9% 225 ML IV PRN ×4 (08:57→21:22)
[2022-08-12] MEDS: REMDESIVIR 100 MG in SODIUM CHLORIDE 0.9% 100 ML IV SCH (09:15)
[2022-08-12] MEDS: DEXAMETHASONE 4 MG/1 ML VIAL IV SCH (11:20)
[2022-08-12] MEDS: AZITHROMYCIN INJ 500 MG in SODIUM CHLORIDE 0.9% 250 ML IV SCH (11:27)
[2022-08-12] MEDS: MIDAZOLAM 2 MG/2 ML VIAL IV ONE ×2 (12:37→12:54)
[2022-08-12] MEDS: MIDAZOLAM DRIP 100 MG/100 ML PREMIX IV PRN (13:07)
[2022-08-12] MEDS: MICAFUNGIN 150 MG in SODIUM CHLORIDE 0.9% 100 ML IV SCH (17:03)
[2022-08-12] MEDS: cefTRIAXone 1,000 MG in SODIUM CHLORIDE 0.9% 100 ML IV SCH (20:36)
[2022-08-12] MEDS: MELATONIN 3 MG TABLET PO SCH (20:37)
[2022-08-12] MEDS: NOREPINEPHRINE DRIP 8 MG/250 ML PREMIX IV PRN (21:49)
[2022-08-12] MEDS ORDERED: LACTATED RINGERS 250 ML IV ONE (21:53)
[2022-08-13] MEDS: SULFAMETHOX/TRIMETHOPRIM 800-160 MG TABLET PO SCH (00:39)
[2022-08-13] MEDS: ALBUTEROL/IPRATROPIUM 3 ML NEB RESP TX SCH ×4 (00:40→18:13)
[2022-08-13] MEDS: fentaNYL INJ 1,250 MCG in SODIUM CHLORIDE 0.9% 225 ML IV PRN ×6 (01:10→22:29)
[2022-08-13 04:55] LABS: Basophils % 0.1 % (0.0-0.8); Hematocrit 38.6 VOL% (42.0-52.0); Hemoglobin 11.7 GM/DL (14.0-18.0); Immature Granulocytes % 1.7 %; Immature Granulocytes Absolute 0.42 #; Lymphocytes # 0.6 10*3/uL (1.4-4.0); Lymphocytes % 2.5 % (21.2-54.2); Mean Corpuscular HGB Conc 30.3 GM/DL (32-36); Mean Corpuscular Volume 103.8 FL (87-102); Mean Platelet Volume 9.4 FL (9.6-12.0); Monocytes # 1.5 10*3/uL (0.11-0.8); Monocytes % 6.1 % (1.7-12.7); NRBC # 0.02 10*3/uL; Neutrophils % 89.6 % (38.7-73.9); Platelet Count 356 T/CUMM (130-400); Red Blood Count 3.72 MC/CUMM (3.8-5.5); Red Cell Distribution Width 14.9 % (9.3-17.3); White Blood Count 24.6 T/CUMM (4-12)
[2022-08-13 05:10] LABS: Albumin 2.4 G/DL (3.4-5.0); Bilirubin,Total 0.4 MG/DL (0.20-1.00); Calcium 8.1 MG/DL (8.5-10.1); Osmolality,Calculated 284.8 MOS/KG (273-304); Potassium 5.5 MMOL/L (3.5-5.1); Total Protein 6.5 G/DL (6.4-8.2)
[2022-08-13 05:11] LABS: Lymphocytes 2 % (20-55); Total Cells Counted 100
[2022-08-13 05:12] LABS: Platelet Estimate Adequate
[2022-08-13 06:10] LABS: Arterial Base Excess iSTAT 1 MMOL/L (-2.5-2.5); Arterial O2 Saturation iSTAT 91 % (95-100); Arterial PCO2 iSTAT 69 MM HG (35-48); Arterial PO2 iSTAT 73 MM HG (80-95); Arterial Total CO2 iSTAT 32 MMO/L (23-27); Arterial pH iSTAT 7.246 (7.35-7.45)
[2022-08-13] MEDS: LACTATED RINGERS 1,000 ML IV SCH (06:10)
[2022-08-13] MEDS: ACETAMINOPHEN 325 MG TABLET PO PRN (07:26)
[2022-08-13 08:36] LABS: Arterial Base Excess iSTAT 3 MMOL/L (-2.5-2.5); Arterial Bicarbonate iSTAT 30.8 MMOL/L (20-26); Arterial O2 Saturation iSTAT 98 % (95-100); Arterial PCO2 iSTAT 66 MM HG (35-48); Arterial PO2 iSTAT 134 MM HG (80-95); Arterial Total CO2 iSTAT 33 MMO/L (23-27); Arterial pH iSTAT 7.277 (7.35-7.45)
[2022-08-13] MEDS: ASCORBIC ACID 500 MG TABLET PO SCH ×2 (08:45→21:33)
[2022-08-13] MEDS: CETIRIZINE 10 MG TABLET PO SCH (08:45)
[2022-08-13] MEDS: PANTOPRAZOLE 40 MG VIAL IV SCH (08:45)
[2022-08-13] MEDS: CHOLECALCIFEROL 5,000 UNIT TABLET PO SCH ×2 (08:45→21:33)
[2022-08-13] MEDS: ENOXAPARIN 40 MG/0.4 ML SYRINGE SUBCUT SCH ×2 (08:45→21:32)
[2022-08-13] MEDS: ASPIRIN CHEW 81 MG TABLET PO SCH (08:45)
[2022-08-13] MEDS: DEXAMETHASONE 4 MG/1 ML VIAL IV SCH (08:45)
[2022-08-13] MEDS: ATORVASTATIN 20 MG TABLET PO SCH (08:45)
[2022-08-13] MEDS: FOLIC ACID 1 MG TABLET PO SCH (08:45)
[2022-08-13] MEDS: ZINC SULFATE 220 MG CAPSULE PO SCH (08:45)
[2022-08-13] MEDS: MIDAZOLAM DRIP 100 MG/100 ML PREMIX IV PRN (08:52)
[2022-08-13 08:57] LABS: Ferritin 955.4 ng/mL (26-388)
[2022-08-13] MEDS: REMDESIVIR 100 MG in SODIUM CHLORIDE 0.9% 100 ML IV SCH (09:15)
[2022-08-13] MEDS: AZITHROMYCIN INJ 500 MG in SODIUM CHLORIDE 0.9% 250 ML IV SCH (11:30)
[2022-08-13] MEDS: SODIUM CHLORIDE 0.45% 1,000 ML IV SCH (13:25)
[2022-08-13] MEDS: MICAFUNGIN 150 MG in SODIUM CHLORIDE 0.9% 100 ML IV SCH (17:20)
[2022-08-13 17:56] LABS: Calcium 7.5 MG/DL (8.5-10.1); Osmolality,Calculated 297.1 MOS/KG (273-304); Potassium 5.6 MMOL/L (3.5-5.1)
[2022-08-13] MEDS ORDERED: SODIUM POLYSTYRENE SULFATE 15 GM/60 ML BOTTLE PO ONE (18:11)
[2022-08-13 20:26] LABS: Cyclic Citrull Peptide Interp Positive
[2022-08-13] MEDS: cefTRIAXone 1,000 MG in SODIUM CHLORIDE 0.9% 100 ML IV SCH (21:33)
[2022-08-13] MEDS: MELATONIN 3 MG TABLET PO SCH (21:33)
[2022-08-14] MEDS: ALBUTEROL/IPRATROPIUM 3 ML NEB RESP TX SCH ×4 (01:55→19:42)
[2022-08-14] MEDS: MIDAZOLAM DRIP 100 MG/100 ML PREMIX IV PRN ×2 (02:17→14:03)
[2022-08-14 02:21] LABS: ABG Base Excess -2.6 MMOL/L (-2.5-2.5); ABG HCO3 22.3 MMOL/L (20-26); ABG Oxygen Saturation 98.7 % (95-100); ABG TCO2 26.1 MMOL/L (23-27)
[2022-08-14 02:25] LABS: ABG PCO2 76.5 MM HG (35-48); ABG PH 7.174 (7.35-7.45)
[2022-08-14] MEDS: fentaNYL INJ 1,250 MCG in SODIUM CHLORIDE 0.9% 225 ML IV PRN ×2 (03:37→08:30)
[2022-08-14 04:06] LABS: Bilirubin,Urine Negative (Negative); Blood, Urine Large mg/dL (Negative); Glucose,Urine (UA) Negative (Negative); Ketones,Urine Negative (Negative); Mucus,Urine Occasional /LPF (Occasional); Nitrite,Urine Negative (Negative); Protein,Urine 30 mg/dL (Negative); RBC,Urine 77 /HPF (0-4); Urine Appearance Clear (Clear); Urine Color Yellow (Yellow); Urine Specific Gravity > 1.030 (1.001-1.035); Urine Urobilinogen 0.2 eU/dL (<2.0); Urine pH 5.5 (4.5-8.0)
[2022-08-14 04:07] LABS: Basophils % 0.1 % (0.0-0.8); Eosinophils # 0.1 10*3/uL (0.0-0.87); Eosinophils % 0.3 % (0.00-10.9); Hematocrit 34.7 VOL% (42.0-52.0); Hemoglobin 10.5 GM/DL (14.0-18.0); Immature Granulocytes % 1.6 %; Immature Granulocytes Absolute 0.28 #; Lymphocytes # 0.3 10*3/uL (1.4-4.0); Lymphocytes % 1.6 % (21.2-54.2); Mean Corpuscular HGB Conc 30.3 GM/DL (32-36); Mean Corpuscular Volume 106.1 FL (87-102); Mean Platelet Volume 9.1 FL (9.6-12.0); Monocytes # 0.7 10*3/uL (0.11-0.8); Neutrophils % 92.4 % (38.7-73.9); Platelet Count 224 T/CUMM (130-400); Red Blood Count 3.27 MC/CUMM (3.8-5.5); Red Cell Distribution Width 14.8 % (9.3-17.3); White Blood Count 17.8 T/CUMM (4-12)
[2022-08-14 04:32] LABS: Alanine Aminotransferase 49 U/L (16-61); Alkaline Phosphatase 86 U/L (45-117); Aspartate Amino Transferase 44 U/L (0-37); Bilirubin,Total < 0.39 MG/DL (0.20-1.00); Blood Urea Nitrogen 59 MG/DL (7-18); Calcium 7.9 MG/DL (8.5-10.1); Carbon Dioxide 28 MMOL/L (21-32); Chloride 108 MMOL/L (98-107); Ferritin 1193.5 ng/mL (26-388); Glucose 77 MG/DL (74-106); Lymphocytes 2 % (20-55); Osmolality,Calculated 292.5 MOS/KG (273-304); Platelet Estimate Adequate; Potassium 4.9 MMOL/L (3.5-5.1); Sodium 139 MMOL/L (136-145); Total Cells Counted 100; Total Protein 5.4 G/DL (6.4-8.2)
[2022-08-14 04:35] LABS: Phosphorous 5.8 MG/DL (2.5-4.9); Total Protein 5.4 G/DL (6.4-8.2); Uric Acid 4.7 MG/DL (3.5-7.2)
[2022-08-14 06:34] LABS: Total Protein (Chem) 5.4 G/DL (6.4-8.3)
[2022-08-14] MEDS: PANTOPRAZOLE 40 MG VIAL IV SCH (08:52)
[2022-08-14] MEDS: ATORVASTATIN 20 MG TABLET PO SCH (08:53)
[2022-08-14] MEDS: ZINC SULFATE 220 MG CAPSULE PO SCH (08:53)
[2022-08-14] MEDS: DEXAMETHASONE 4 MG/1 ML VIAL IV SCH (08:53)
[2022-08-14] MEDS: ASPIRIN CHEW 81 MG TABLET PO SCH (08:53)
[2022-08-14] MEDS: CHOLECALCIFEROL 5,000 UNIT TABLET PO SCH ×2 (08:53→20:26)
[2022-08-14] MEDS: CETIRIZINE 10 MG TABLET PO SCH (08:53)
[2022-08-14] MEDS: ASCORBIC ACID 500 MG TABLET PO SCH ×2 (08:53→20:26)
[2022-08-14] MEDS: FOLIC ACID 1 MG TABLET PO SCH (08:53)
[2022-08-14 08:54] LABS: Albumin (SPE) 2.9 G/DL (3.2-5.3); Albumin (SPE) Rel % 52.9 %; Alpha 1 (SPE) 0.3 G/DL (0.1-0.4); Alpha 1 (SPE) Rel % 5.8 %; Alpha 2 (SPE) 0.8 G/DL (0.4-1.0); Alpha 2 (SPE) Rel % 15.5 %; Beta (SPE) 0.7 G/DL (0.5-1.1); Beta (SPE) Rel % 12.9 %; Gamma (SPE) 0.7 G/DL (0.7-1.7); Gamma (SPE) Rel % 12.9 %
[2022-08-14 09:05] LABS: Arterial Base Excess iSTAT -1 MMOL/L (-2.5-2.5); Arterial Bicarbonate iSTAT 27.9 MMOL/L (20-26); Arterial O2 Saturation iSTAT 99 % (95-100); Arterial PCO2 iSTAT 69 MM HG (35-48); Arterial PO2 iSTAT 181 MM HG (80-95); Arterial Total CO2 iSTAT 30 MMO/L (23-27); Arterial pH iSTAT 7.219 (7.35-7.45)
[2022-08-14] MEDS: SODIUM CHLORIDE 0.45% 1,000 ML IV SCH ×2 (11:00→23:15)
[2022-08-14] MEDS: methylPREDNISolone SOD SUC 125 MG/2 ML VIAL IV SCH ×3 (11:38→23:09)
[2022-08-14] MEDS: AZITHROMYCIN INJ 500 MG in SODIUM CHLORIDE 0.9% 250 ML IV SCH (11:38)
[2022-08-14] MEDS: fentaNYL INJ 2,500 MCG in SODIUM CHLORIDE 0.9% 75 ML IV PRN ×2 (13:23→20:57)
[2022-08-14] MEDS: NOREPINEPHRINE DRIP 8 MG/250 ML PREMIX IV PRN (16:14)
[2022-08-14] MEDS: MICAFUNGIN 150 MG in SODIUM CHLORIDE 0.9% 100 ML IV SCH (16:46)
[2022-08-14] MEDS ORDERED: SODIUM CHLORIDE 0.9% 1,000 ML IV ONE (18:15)
[2022-08-14] MEDS: cefTRIAXone 1,000 MG in SODIUM CHLORIDE 0.9% 100 ML IV SCH (20:25)
[2022-08-14] MEDS: MELATONIN 3 MG TABLET PO SCH (20:26)
[2022-08-14] MEDS ORDERED: ENOXAPARIN 40 MG/0.4 ML SYRINGE SUBCUT SCH (21:00)
[2022-08-15] MEDS: ALBUTEROL/IPRATROPIUM 3 ML NEB RESP TX SCH ×4 (00:29→20:10)
[2022-08-15] MEDS: NOREPINEPHRINE DRIP 8 MG/250 ML PREMIX IV PRN (04:01)
[2022-08-15 04:07] LABS: Basophils % 0.1 % (0.0-0.8); Hematocrit 33.7 VOL% (42.0-52.0); Hemoglobin 10.1 GM/DL (14.0-18.0); Immature Granulocytes % 1.6 %; Immature Granulocytes Absolute 0.25 #; Lymphocytes # 0.3 10*3/uL (1.4-4.0); Lymphocytes % 1.9 % (21.2-54.2); Mean Platelet Volume 9.3 FL (9.6-12.0); Monocytes # 0.3 10*3/uL (0.11-0.8); Monocytes % 1.6 % (1.7-12.7); Neutrophils % 94.8 % (38.7-73.9); Platelet Count 253 T/CUMM (130-400); Red Blood Count 3.21 MC/CUMM (3.8-5.5); Red Cell Distribution Width 14.6 % (9.3-17.3); White Blood Count 15.3 T/CUMM (4-12)
[2022-08-15 04:27] LABS: Alanine Aminotransferase 43 U/L (16-61); Albumin 1.8 G/DL (3.4-5.0); Alkaline Phosphatase 95 U/L (45-117); Aspartate Amino Transferase 35 U/L (0-37); Bilirubin,Total < 0.39 MG/DL (0.20-1.00); Blood Urea Nitrogen 76 MG/DL (7-18); Carbon Dioxide 25 MMOL/L (21-32); Chloride 110 MMOL/L (98-107); Ferritin 1439.5 ng/mL (26-388); Glucose 175 MG/DL (74-106); Potassium 5.4 MMOL/L (3.5-5.1); Sodium 143 MMOL/L (136-145); Total Protein 5.3 G/DL (6.4-8.2)
[2022-08-15 04:28] LABS: Arterial Base Excess iSTAT -3 MMOL/L (-2.5-2.5); Arterial Bicarbonate iSTAT 25.8 MMOL/L (20-26); Arterial O2 Saturation iSTAT 98 % (95-100); Arterial PCO2 iSTAT 63 MM HG (35-48); Arterial PO2 iSTAT 123 MM HG (80-95); Arterial Total CO2 iSTAT 28 MMO/L (23-27); Arterial pH iSTAT 7.223 (7.35-7.45)
[2022-08-15] MEDS: MIDAZOLAM DRIP 100 MG/100 ML PREMIX IV PRN ×2 (04:46→15:55)
[2022-08-15] MEDS: methylPREDNISolone SOD SUC 125 MG/2 ML VIAL IV SCH ×4 (04:52→22:50)
[2022-08-15 05:06] LABS: Lymphocytes 3 % (20-55); Nucleated Red Blood Cells 1 /100 WBC (0-5); Phosphorous 5.8 MG/DL (2.5-4.9); Platelet Estimate Adequate; Total Cells Counted 100
[2022-08-15] MEDS: fentaNYL INJ 2,500 MCG in SODIUM CHLORIDE 0.9% 75 ML IV PRN ×3 (05:08→19:18)
[2022-08-15] MEDS: PANTOPRAZOLE 40 MG VIAL IV SCH (08:18)
[2022-08-15] MEDS: ASCORBIC ACID 500 MG TABLET PO SCH ×2 (08:18→20:17)
[2022-08-15] MEDS: ASPIRIN CHEW 81 MG TABLET PO SCH (08:18)
[2022-08-15] MEDS: ZINC SULFATE 220 MG CAPSULE PO SCH (08:18)
[2022-08-15] MEDS: CETIRIZINE 10 MG TABLET PO SCH (08:18)
[2022-08-15] MEDS: ATORVASTATIN 20 MG TABLET PO SCH (08:18)
[2022-08-15] MEDS: FOLIC ACID 1 MG TABLET PO SCH (08:18)
[2022-08-15] MEDS: CHOLECALCIFEROL 5,000 UNIT TABLET PO SCH ×2 (08:18→20:17)
[2022-08-15] MEDS: SODIUM CHLORIDE 0.45% 1,000 ML IV SCH ×2 (08:20→19:18)
[2022-08-15] MEDS: HEPARIN DRIP 25,000 UNITS/500 ML PREMIX IV SCH (09:26)
[2022-08-15 09:44] LABS: INR 1.1; PT Patient Result 11.9 SECS (10.1-12.1)
[2022-08-15] MEDS: AZITHROMYCIN INJ 500 MG in SODIUM CHLORIDE 0.9% 250 ML IV SCH (11:15)
[2022-08-15] MEDS: METOCLOPRAMIDE 10 MG/2 ML VIAL IV SCH ×2 (11:15→17:07)
[2022-08-15] MEDS ORDERED: METOCLOPRAMIDE 10 MG/10 ML UDCUP PO SCH (12:00)
[2022-08-15] MEDS ORDERED: SODIUM POLYSTYRENE SULFATE 15 GM/60 ML BOTTLE PO ONE (16:31)
[2022-08-15] MEDS: MICAFUNGIN 150 MG in SODIUM CHLORIDE 0.9% 100 ML IV SCH (17:07)
[2022-08-15] MEDS: ACETAMINOPHEN 325 MG TABLET PO PRN (20:16)
[2022-08-15] MEDS: cefTRIAXone 1,000 MG in SODIUM CHLORIDE 0.9% 100 ML IV SCH (20:16)
[2022-08-15] MEDS: MELATONIN 3 MG TABLET PO SCH (20:17)
[2022-08-16] MEDS: METOCLOPRAMIDE 10 MG/2 ML VIAL IV SCH ×4 (00:06→17:01)
[2022-08-16] MEDS: NOREPINEPHRINE DRIP 8 MG/250 ML PREMIX IV PRN (00:14)
[2022-08-16] MEDS: ALBUTEROL/IPRATROPIUM 3 ML NEB RESP TX SCH ×4 (00:43→19:16)
[2022-08-16] MEDS: fentaNYL INJ 2,500 MCG in SODIUM CHLORIDE 0.9% 75 ML IV PRN ×3 (01:48→17:19)
[2022-08-16] MEDS: HEPARIN DRIP 25,000 UNITS/500 ML PREMIX IV SCH ×2 (01:49→08:42)
[2022-08-16 03:29] LABS: Basophils % 0.1 % (0.0-0.8); Hematocrit 31.3 VOL% (42.0-52.0); Hemoglobin 9.3 GM/DL (14.0-18.0); Immature Granulocytes % 1.4 %; Immature Granulocytes Absolute 0.24 #; Lymphocytes # 0.3 10*3/uL (1.4-4.0); Lymphocytes % 1.8 % (21.2-54.2); Mean Corpuscular HGB Conc 29.7 GM/DL (32-36); Mean Corpuscular Volume 104.7 FL (87-102); Mean Platelet Volume 9.2 FL (9.6-12.0); Monocytes # 0.5 10*3/uL (0.11-0.8); Neutrophils % 93.7 % (38.7-73.9); Platelet Count 211 T/CUMM (130-400); Red Blood Count 2.99 MC/CUMM (3.8-5.5); Red Cell Distribution Width 14.6 % (9.3-17.3); White Blood Count 16.9 T/CUMM (4-12)
[2022-08-16 03:45] LABS: Alanine Aminotransferase 37 U/L (16-61); Albumin 1.8 G/DL (3.4-5.0); Alkaline Phosphatase 80 U/L (45-117); Aspartate Amino Transferase 26 U/L (0-37); Bilirubin,Total < 0.39 MG/DL (0.20-1.00); Blood Urea Nitrogen 84 MG/DL (7-18); Calcium 7.4 MG/DL (8.5-10.1); Carbon Dioxide 25 MMOL/L (21-32); Chloride 109 MMOL/L (98-107); Ferritin 1294.3 ng/mL (26-388); Glucose 184 MG/DL (74-106); Osmolality,Calculated 311.3 MOS/KG (273-304); Potassium 5.3 MMOL/L (3.5-5.1); Sodium 141 MMOL/L (136-145); Total Protein 5.1 G/DL (6.4-8.2)
[2022-08-16 03:50] LABS: Lymphocytes 3 % (20-55); Platelet Estimate Adequate; Total Cells Counted 100
[2022-08-16] MEDS: MIDAZOLAM DRIP 100 MG/100 ML PREMIX IV PRN ×2 (04:00→15:31)
[2022-08-16 05:01] LABS: Arterial Base Excess iSTAT -2 MMOL/L (-2.5-2.5); Arterial Bicarbonate iSTAT 26.4 MMOL/L (20-26); Arterial O2 Saturation iSTAT 95 % (95-100); Arterial PCO2 iSTAT 62 MM HG (35-48); Arterial PO2 iSTAT 88 MM HG (80-95); Arterial Total CO2 iSTAT 28 MMO/L (23-27); Arterial pH iSTAT 7.238 (7.35-7.45)
[2022-08-16] MEDS: SODIUM CHLORIDE 0.45% 1,000 ML IV SCH ×2 (05:16→15:30)
[2022-08-16] MEDS: methylPREDNISolone SOD SUC 125 MG/2 ML VIAL IV SCH ×3 (05:16→17:01)
[2022-08-16] MEDS: FOLIC ACID 1 MG TABLET PO SCH (08:09)
[2022-08-16] MEDS: ZINC SULFATE 220 MG CAPSULE PO SCH (08:09)
[2022-08-16] MEDS: CETIRIZINE 10 MG TABLET PO SCH (08:09)
[2022-08-16] MEDS: ATORVASTATIN 20 MG TABLET PO SCH (08:09)
[2022-08-16] MEDS: ASCORBIC ACID 500 MG TABLET PO SCH ×2 (08:09→21:21)
[2022-08-16] MEDS: ASPIRIN CHEW 81 MG TABLET PO SCH (08:09)
[2022-08-16] MEDS: CHOLECALCIFEROL 5,000 UNIT TABLET PO SCH ×2 (08:09→21:21)
[2022-08-16] MEDS: PANTOPRAZOLE 40 MG VIAL IV SCH (08:09)
[2022-08-16 09:02] VITALS: BP 119/69
[2022-08-16] MEDS: AZITHROMYCIN INJ 500 MG in SODIUM CHLORIDE 0.9% 250 ML IV SCH (11:28)
[2022-08-16 16:17] LABS: Pneumocystis jiroveci Result Negative (Negative); Pneumocystis jiroveci Source SPUTUM
[2022-08-16] MEDS: MICAFUNGIN 150 MG in SODIUM CHLORIDE 0.9% 100 ML IV SCH (17:01)
[2022-08-16] MEDS: MELATONIN 3 MG TABLET PO SCH (21:02)
[2022-08-16] MEDS: cefTRIAXone 1,000 MG in SODIUM CHLORIDE 0.9% 100 ML IV SCH (21:21)
[2022-08-17] MEDS: HEPARIN DRIP 25,000 UNITS/500 ML PREMIX IV SCH (00:20)
[2022-08-17] MEDS: NOREPINEPHRINE DRIP 8 MG/250 ML PREMIX IV PRN (00:20)
[2022-08-17] MEDS: ALBUTEROL/IPRATROPIUM 3 ML NEB RESP TX SCH ×4 (00:25→19:06)
[2022-08-17] MEDS: methylPREDNISolone SOD SUC 125 MG/2 ML VIAL IV SCH ×5 (01:32→23:10)
[2022-08-17] MEDS: METOCLOPRAMIDE 10 MG/2 ML VIAL IV SCH ×5 (01:40→23:46)
[2022-08-17] MEDS: SODIUM CHLORIDE 0.45% 1,000 ML IV SCH ×2 (01:41→10:48)
[2022-08-17] MEDS: MIDAZOLAM DRIP 100 MG/100 ML PREMIX IV PRN ×2 (04:17→16:05)
[2022-08-17] MEDS: fentaNYL INJ 2,500 MCG in SODIUM CHLORIDE 0.9% 75 ML IV PRN ×3 (04:20→23:20)
[2022-08-17 04:32] LABS: Basophils % 0.1 % (0.0-0.8); Hematocrit 30.6 VOL% (42.0-52.0); Hemoglobin 9.1 GM/DL (14.0-18.0); Immature Granulocytes % 2.2 %; Immature Granulocytes Absolute 0.31 #; Lymphocytes # 0.3 10*3/uL (1.4-4.0); Lymphocytes % 2.2 % (21.2-54.2); Mean Corpuscular HGB Conc 29.7 GM/DL (32-36); Mean Corpuscular Volume 103.7 FL (87-102); Mean Platelet Volume 9.5 FL (9.6-12.0); Monocytes # 0.6 10*3/uL (0.11-0.8); Monocytes % 3.8 % (1.7-12.7); Neutrophils % 91.7 % (38.7-73.9); Platelet Count 179 T/CUMM (130-400); Red Blood Count 2.95 MC/CUMM (3.8-5.5); Red Cell Distribution Width 14.6 % (9.3-17.3); White Blood Count 14.3 T/CUMM (4-12)
[2022-08-17 04:38] LABS: Arterial Base Excess iSTAT -4 MMOL/L (-2.5-2.5); Arterial Bicarbonate iSTAT 25.1 MMOL/L (20-26); Arterial O2 Saturation iSTAT 94 % (95-100); Arterial PCO2 iSTAT 64 MM HG (35-48); Arterial PO2 iSTAT 90 MM HG (80-95); Arterial Total CO2 iSTAT 27 MMO/L (23-27); Arterial pH iSTAT 7.199 (7.35-7.45)
[2022-08-17 04:50] LABS: Alanine Aminotransferase 34 U/L (16-61); Alkaline Phosphatase 76 U/L (45-117); Aspartate Amino Transferase 33 U/L (0-37); Bilirubin,Total < 0.39 MG/DL (0.20-1.00); Blood Urea Nitrogen 102 MG/DL (7-18); Calcium 7.6 MG/DL (8.5-10.1); Carbon Dioxide 25 MMOL/L (21-32); Chloride 108 MMOL/L (98-107); Ferritin 1380.7 ng/mL (26-388); Glucose 160 MG/DL (74-106); Osmolality,Calculated 311.5 MOS/KG (273-304); Potassium 5.5 MMOL/L (3.5-5.1); Sodium 139 MMOL/L (136-145); Total Protein 5.3 G/DL (6.4-8.2)
[2022-08-17 05:24] LABS: Anisocytosis 1+; Band Neutrophils 13 % (0-10); Lymphocytes 2 % (20-55); Metamyelocytes 1 %; Platelet Estimate Normal; Total Cells Counted 100
[2022-08-17 05:25] LABS: Burr Cells Few; Macrocytosis Slight
[2022-08-17] MEDS: ATORVASTATIN 20 MG TABLET PO SCH (08:55)
[2022-08-17] MEDS: CHOLECALCIFEROL 5,000 UNIT TABLET PO SCH ×2 (08:55→21:00)
[2022-08-17] MEDS: FOLIC ACID 1 MG TABLET PO SCH (08:55)
[2022-08-17] MEDS: ASCORBIC ACID 500 MG TABLET PO SCH ×2 (08:55→21:00)
[2022-08-17] MEDS: ASPIRIN CHEW 81 MG TABLET PO SCH (08:55)
[2022-08-17] MEDS: PANTOPRAZOLE 40 MG VIAL IV SCH (08:56)
[2022-08-17] MEDS: ZINC SULFATE 220 MG CAPSULE PO SCH (08:56)
[2022-08-17] MEDS: CETIRIZINE 10 MG TABLET PO SCH (08:56)
[2022-08-17] MEDS ORDERED: SODIUM POLYSTYRENE SULFATE 15 GM/60 ML BOTTLE PO ONE ×2 (09:11→15:42)
[2022-08-17] MEDS: FONDAPARINUX 7.5 MG/0.6 ML SYRINGE SUBCUT SCH (12:21)
[2022-08-17 12:57] LABS: Calcium 7.6 MG/DL (8.5-10.1); Osmolality,Calculated 312.5 MOS/KG (273-304); Potassium 5.3 MMOL/L (3.5-5.1)
[2022-08-17] MEDS ORDERED: ROCURONIUM 100 MG/10 ML VIAL IV ONE ×2 (13:11→13:12)
[2022-08-17] MEDS: ROCURONIUM 500 MG in SODIUM CHLORIDE 0.9% 500 ML IV PRN (14:27)
[2022-08-17] MEDS: FAMOTIDINE 20 MG/2 ML VIAL IV SCH (16:09)
[2022-08-17] MEDS: MICAFUNGIN 150 MG in SODIUM CHLORIDE 0.9% 100 ML IV SCH (16:15)
[2022-08-17 19:36] LABS: Calcium 7.3 MG/DL (8.5-10.1); Osmolality,Calculated 316.4 MOS/KG (273-304); Potassium 5.7 MMOL/L (3.5-5.1)
[2022-08-17] MEDS: MELATONIN 3 MG TABLET PO SCH (20:13)
[2022-08-17] MEDS ORDERED: SODIUM POLYSTYRENE SULFATE 15 GM/60 ML BOTTLE RECTAL ONE (20:45)
[2022-08-17] MEDS: POLYETHYLENE GLYCOL POWDER 17 GM PACK PO SCH (21:01)
[2022-08-17] MEDS ORDERED: INSULIN REGULAR 10 UNIT, CALCIUM GLUCONATE 1,000 MG in DEXTROSE 10% 250 ML IV ONE (21:15)
[2022-08-17] MEDS: cefTRIAXone 1,000 MG in SODIUM CHLORIDE 0.9% 100 ML IV SCH (23:47)
[2022-08-18] MEDS: ALBUTEROL/IPRATROPIUM 3 ML NEB RESP TX SCH ×4 (00:42→19:30)
[2022-08-18] MEDS: ROCURONIUM 500 MG in SODIUM CHLORIDE 0.9% 500 ML IV PRN ×2 (02:01→13:39)
[2022-08-18 03:06] LABS: Arterial Base Excess iSTAT -6 MMOL/L (-2.5-2.5); Arterial Bicarbonate iSTAT 25.4 MMOL/L (20-26); Arterial O2 Saturation iSTAT 95 % (95-100); Arterial PCO2 iSTAT 87 MM HG (35-48); Arterial PO2 iSTAT 110 MM HG (80-95); Arterial Total CO2 iSTAT 28 MMO/L (23-27); Arterial pH iSTAT 7.077 (7.35-7.45)
[2022-08-18 03:38] LABS: Basophils % 0.1 % (0.0-0.8); Hematocrit 32.8 VOL% (42.0-52.0); Hemoglobin 9.8 GM/DL (14.0-18.0); Immature Granulocytes % 3.1 %; Immature Granulocytes Absolute 0.49 #; Lymphocytes # 0.2 10*3/uL (1.4-4.0); Lymphocytes % 1.3 % (21.2-54.2); Mean Corpuscular HGB Conc 29.9 GM/DL (32-36); Mean Corpuscular Volume 105.1 FL (87-102); Mean Platelet Volume 9.3 FL (9.6-12.0); Monocytes # 0.7 10*3/uL (0.11-0.8); Monocytes % 4.1 % (1.7-12.7); Neutrophils % 91.4 % (38.7-73.9); Platelet Count 155 T/CUMM (130-400); Red Blood Count 3.12 MC/CUMM (3.8-5.5); Red Cell Distribution Width 14.3 % (9.3-17.3); White Blood Count 15.9 T/CUMM (4-12)
[2022-08-18 03:54] LABS: Alanine Aminotransferase 35 U/L (16-61); Alkaline Phosphatase 90 U/L (45-117); Aspartate Amino Transferase 28 U/L (0-37); Bilirubin,Total < 0.39 MG/DL (0.20-1.00); Blood Urea Nitrogen 114 MG/DL (7-18); Calcium 7.9 MG/DL (8.5-10.1); Carbon Dioxide 24 MMOL/L (21-32); Chloride 111 MMOL/L (98-107); Ferritin 1163.1 ng/mL (26-388); Glucose 167 MG/DL (74-106); Osmolality,Calculated 320.3 MOS/KG (273-304); Potassium 5.4 MMOL/L (3.5-5.1); Sodium 141 MMOL/L (136-145); Total Protein 5.4 G/DL (6.4-8.2)
[2022-08-18 04:01] LABS: Lymphocytes 1 % (20-55); Platelet Estimate Adequate; Total Cells Counted 100
[2022-08-18] MEDS: FAMOTIDINE 20 MG/2 ML VIAL IV SCH ×2 (04:35→16:55)
[2022-08-18 04:36] LABS: Arterial pH iSTAT 7.103 (7.35-7.45)
[2022-08-18] MEDS: methylPREDNISolone SOD SUC 125 MG/2 ML VIAL IV SCH ×4 (04:54→23:52)
[2022-08-18] MEDS: MIDAZOLAM DRIP 100 MG/100 ML PREMIX IV PRN ×2 (04:57→17:45)
[2022-08-18] MEDS: METOCLOPRAMIDE 10 MG/2 ML VIAL IV SCH ×4 (06:19→23:52)
[2022-08-18] MEDS: fentaNYL INJ 2,500 MCG in SODIUM CHLORIDE 0.9% 75 ML IV PRN ×2 (08:31→19:16)
[2022-08-18] MEDS: CHOLECALCIFEROL 5,000 UNIT TABLET PO SCH ×2 (08:50→20:08)
[2022-08-18] MEDS: CETIRIZINE 10 MG TABLET PO SCH (08:50)
[2022-08-18] MEDS: POLYETHYLENE GLYCOL POWDER 17 GM PACK PO SCH ×2 (08:50→20:08)
[2022-08-18] MEDS: ZINC SULFATE 220 MG CAPSULE PO SCH (08:50)
[2022-08-18] MEDS: FOLIC ACID 1 MG TABLET PO SCH (08:50)
[2022-08-18] MEDS: ASPIRIN CHEW 81 MG TABLET PO SCH (08:50)
[2022-08-18] MEDS: ASCORBIC ACID 500 MG TABLET PO SCH ×2 (08:50→20:08)
[2022-08-18] MEDS: ATORVASTATIN 20 MG TABLET PO SCH (08:50)
[2022-08-18] MEDS: SODIUM CHLORIDE 0.45% 1,000 ML IV SCH (09:24)
[2022-08-18] MEDS: FONDAPARINUX 7.5 MG/0.6 ML SYRINGE SUBCUT SCH (10:54)
[2022-08-18] MEDS: SODIUM BICARB INJ 100 MEQ in SODIUM CHLORIDE 0.45% 1,000 ML IV SCH ×2 (11:59→23:49)
[2022-08-18] MEDS: hydrALAZINE 20 MG/1 ML VIAL IV PRN (12:11)
[2022-08-18] MEDS: MICAFUNGIN 150 MG in SODIUM CHLORIDE 0.9% 100 ML IV SCH (17:00)
[2022-08-18 17:21] LABS: Calcium 7.6 MG/DL (8.5-10.1); Potassium 5.7 MMOL/L (3.5-5.1)
[2022-08-18] MEDS ORDERED: SODIUM POLYSTYRENE SULFATE 15 GM/60 ML BOTTLE PO ONE ×3 (19:00→21:00)
[2022-08-18] MEDS: MELATONIN 3 MG TABLET PO SCH (20:08)
[2022-08-18] MEDS: cefTRIAXone 1,000 MG in SODIUM CHLORIDE 0.9% 100 ML IV SCH (20:12)
[2022-08-18] MEDS ORDERED: SODIUM CHLORIDE 0.45% 500 ML IV ONE (22:30)
[2022-08-18 23:31] LABS: Pneumocystis jiroveci Result Negative (Negative); Pneumocystis jiroveci Source BRONCH WASH
[2022-08-19] MEDS: ALBUTEROL/IPRATROPIUM 3 ML NEB RESP TX SCH ×4 (00:06→19:17)
[2022-08-19] MEDS ORDERED: SODIUM POLYSTYRENE SULFATE 15 GM/60 ML BOTTLE PO ONE (01:45)
[2022-08-19] MEDS: ROCURONIUM 500 MG in SODIUM CHLORIDE 0.9% 500 ML IV PRN ×3 (02:07→22:30)
[2022-08-19 03:58] LABS: Basophils % 0.1 % (0.0-0.8); Hematocrit 33.3 VOL% (42.0-52.0); Immature Granulocytes % 4.1 %; Immature Granulocytes Absolute 0.94 #; Lymphocytes # 0.3 10*3/uL (1.4-4.0); Lymphocytes % 1.3 % (21.2-54.2); Mean Platelet Volume 9.6 FL (9.6-12.0); Monocytes # 1.1 10*3/uL (0.11-0.8); Neutrophils % 89.5 % (38.7-73.9); Platelet Count 185 T/CUMM (130-400); Red Blood Count 3.17 MC/CUMM (3.8-5.5); Red Cell Distribution Width 14.5 % (9.3-17.3); White Blood Count 22.8 T/CUMM (4-12)
[2022-08-19 04:11] LABS: Arterial Base Excess iSTAT -7 MMOL/L (-2.5-2.5); Arterial Bicarbonate iSTAT 24.5 MMOL/L (20-26); Arterial O2 Saturation iSTAT 94 % (95-100); Arterial PCO2 iSTAT 87 MM HG (35-48); Arterial PO2 iSTAT 105 MM HG (80-95); Arterial Total CO2 iSTAT 27 MMO/L (23-27); Arterial pH iSTAT 7.057 (7.35-7.45)
[2022-08-19 04:15] LABS: Alanine Aminotransferase 34 U/L (16-61); Albumin 2.1 G/DL (3.4-5.0); Alkaline Phosphatase 90 U/L (45-117); Aspartate Amino Transferase 20 U/L (0-37); Bilirubin,Total < 0.39 MG/DL (0.20-1.00); Blood Urea Nitrogen 125 MG/DL (7-18); Calcium 7.6 MG/DL (8.5-10.1); Carbon Dioxide 25 MMOL/L (21-32); Chloride 109 MMOL/L (98-107); Glucose 196 MG/DL (74-106); Osmolality,Calculated 323.4 MOS/KG (273-304); Potassium 5.4 MMOL/L (3.5-5.1); Sodium 140 MMOL/L (136-145); Total Protein 5.5 G/DL (6.4-8.2)
[2022-08-19 04:17] LABS: Lymphocytes 1 % (20-55); Platelet Estimate Adequate; Total Cells Counted 100
[2022-08-19] MEDS: FAMOTIDINE 20 MG/2 ML VIAL IV SCH ×2 (04:28→16:15)
[2022-08-19] MEDS: methylPREDNISolone SOD SUC 125 MG/2 ML VIAL IV SCH ×4 (04:28→23:10)
[2022-08-19 04:30] LABS: Phosphorous 8.5 MG/DL (2.5-4.9)
[2022-08-19] MEDS: METOCLOPRAMIDE 10 MG/2 ML VIAL IV SCH ×4 (05:23→23:11)
[2022-08-19] MEDS: fentaNYL INJ 2,500 MCG in SODIUM CHLORIDE 0.9% 75 ML IV PRN ×2 (06:20→16:44)
[2022-08-19] MEDS: NOREPINEPHRINE DRIP 8 MG/250 ML PREMIX IV PRN ×2 (07:37→16:57)
[2022-08-19] MEDS: MIDAZOLAM DRIP 100 MG/100 ML PREMIX IV PRN ×2 (07:37→20:12)
[2022-08-19] MEDS: ZINC SULFATE 220 MG CAPSULE PO SCH (08:40)
[2022-08-19] MEDS: POLYETHYLENE GLYCOL POWDER 17 GM PACK PO SCH ×2 (08:40→20:12)
[2022-08-19] MEDS: ATORVASTATIN 20 MG TABLET PO SCH (08:40)
[2022-08-19] MEDS: FOLIC ACID 1 MG TABLET PO SCH (08:40)
[2022-08-19] MEDS: CHOLECALCIFEROL 5,000 UNIT TABLET PO SCH ×2 (08:40→20:12)
[2022-08-19] MEDS: ASCORBIC ACID 500 MG TABLET PO SCH ×2 (08:40→20:12)
[2022-08-19] MEDS: ASPIRIN CHEW 81 MG TABLET PO SCH (08:40)
[2022-08-19] MEDS: CETIRIZINE 10 MG TABLET PO SCH (08:40)
[2022-08-19] MEDS: FONDAPARINUX 7.5 MG/0.6 ML SYRINGE SUBCUT SCH (10:56)
[2022-08-19] MEDS: SODIUM BICARB INJ 100 MEQ in SODIUM CHLORIDE 0.45% 1,000 ML IV SCH ×2 (10:56→22:09)
[2022-08-19] MEDS: MICAFUNGIN 150 MG in SODIUM CHLORIDE 0.9% 100 ML IV SCH (16:15)
[2022-08-19 18:56] LABS: M. Tuberculosis PCR Result Negative (Negative)
[2022-08-19] MEDS: cefTRIAXone 1,000 MG in SODIUM CHLORIDE 0.9% 100 ML IV SCH (20:12)
[2022-08-19] MEDS: MELATONIN 3 MG TABLET PO SCH (20:12)
[2022-08-20] MEDS: ALBUTEROL/IPRATROPIUM 3 ML NEB RESP TX SCH ×4 (01:06→20:38)
[2022-08-20] MEDS: NOREPINEPHRINE DRIP 8 MG/250 ML PREMIX IV PRN ×2 (02:24→17:39)
[2022-08-20] MEDS: fentaNYL INJ 2,500 MCG in SODIUM CHLORIDE 0.9% 75 ML IV PRN ×2 (03:27→15:38)
[2022-08-20] MEDS: FAMOTIDINE 20 MG/2 ML VIAL IV SCH ×2 (03:49→17:34)
[2022-08-20 04:06] LABS: Basophils % 0.1 % (0.0-0.8); Hemoglobin 8.8 GM/DL (14.0-18.0); Immature Granulocytes % 2.5 %; Immature Granulocytes Absolute 0.56 #; Lymphocytes # 0.2 10*3/uL (1.4-4.0); Lymphocytes % 1.1 % (21.2-54.2); Mean Corpuscular HGB Conc 30.3 GM/DL (32-36); Mean Corpuscular Volume 103.2 FL (87-102); Mean Platelet Volume 9.9 FL (9.6-12.0); Monocytes % 4.6 % (1.7-12.7); Neutrophils % 91.7 % (38.7-73.9); Platelet Count 134 T/CUMM (130-400); Red Blood Count 2.81 MC/CUMM (3.8-5.5); Red Cell Distribution Width 14.5 % (9.3-17.3)
[2022-08-20 04:27] LABS: Alanine Aminotransferase 29 U/L (16-61); Albumin 1.7 G/DL (3.4-5.0); Alkaline Phosphatase 86 U/L (45-117); Aspartate Amino Transferase 17 U/L (0-37); Bilirubin,Total < 0.39 MG/DL (0.20-1.00); Blood Urea Nitrogen 141 MG/DL (7-18); Calcium 6.7 MG/DL (8.5-10.1); Carbon Dioxide 25 MMOL/L (21-32); Chloride 108 MMOL/L (98-107); Glucose 163 MG/DL (74-106); Osmolality,Calculated 332.1 MOS/KG (273-304); Potassium 5.1 MMOL/L (3.5-5.1); Sodium 142 MMOL/L (136-145); Total Protein 4.4 G/DL (6.4-8.2)
[2022-08-20 04:28] LABS: Band Neutrophils 1 % (0-10); Lymphocytes 3 % (20-55); Macrocytosis Slight; Total Cells Counted 100
[2022-08-20] MEDS: methylPREDNISolone SOD SUC 125 MG/2 ML VIAL IV SCH ×4 (05:41→22:44)
[2022-08-20] MEDS: METOCLOPRAMIDE 10 MG/2 ML VIAL IV SCH ×4 (05:41→23:50)
[2022-08-20 05:50] LABS: Arterial Base Excess iSTAT 0 MMOL/L (-2.5-2.5); Arterial Bicarbonate iSTAT 27.3 MMOL/L (20-26); Arterial O2 Saturation iSTAT 95 % (95-100); Arterial PCO2 iSTAT 71 MM HG (35-48); Arterial PO2 iSTAT 99 MM HG (80-95); Arterial Total CO2 iSTAT 29 MMO/L (23-27); Arterial pH iSTAT 7.194 (7.35-7.45)
[2022-08-20] MEDS: ROCURONIUM 500 MG in SODIUM CHLORIDE 0.9% 500 ML IV PRN ×2 (08:29→18:40)
[2022-08-20] MEDS: SODIUM BICARB INJ 100 MEQ in SODIUM CHLORIDE 0.45% 1,000 ML IV SCH ×2 (09:16→20:15)
[2022-08-20] MEDS: ASPIRIN CHEW 81 MG TABLET PO SCH (09:46)
[2022-08-20] MEDS: POLYETHYLENE GLYCOL POWDER 17 GM PACK PO SCH ×2 (09:46→22:04)
[2022-08-20] MEDS: CETIRIZINE 10 MG TABLET PO SCH (09:46)
[2022-08-20] MEDS: FOLIC ACID 1 MG TABLET PO SCH (09:46)
[2022-08-20] MEDS: CHOLECALCIFEROL 5,000 UNIT TABLET PO SCH ×2 (09:46→21:50)
[2022-08-20] MEDS: ATORVASTATIN 20 MG TABLET PO SCH (09:46)
[2022-08-20] MEDS: ZINC SULFATE 220 MG CAPSULE PO SCH (09:46)
[2022-08-20] MEDS: ASCORBIC ACID 500 MG TABLET PO SCH ×2 (09:46→21:50)
[2022-08-20] MEDS: FONDAPARINUX 7.5 MG/0.6 ML SYRINGE SUBCUT SCH (09:47)
[2022-08-20] MEDS: MIDAZOLAM DRIP 100 MG/100 ML PREMIX IV PRN ×2 (11:30→19:30)
[2022-08-20] MEDS: MINERAL OIL/PETROLATUM OPH OINT 3.5 GM TUBE BOTH EYES SCH ×2 (11:32→22:07)
[2022-08-20] MEDS: MICAFUNGIN 150 MG in SODIUM CHLORIDE 0.9% 100 ML IV SCH (17:34)
[2022-08-20] MEDS: MELATONIN 3 MG TABLET PO SCH (21:11)
[2022-08-20] MEDS: cefTRIAXone 1,000 MG in SODIUM CHLORIDE 0.9% 100 ML IV SCH (21:46)
[2022-08-21] MEDS: ALBUTEROL/IPRATROPIUM 3 ML NEB RESP TX SCH ×4 (00:25→19:32)
[2022-08-21] MEDS: fentaNYL INJ 2,500 MCG in SODIUM CHLORIDE 0.9% 75 ML IV PRN ×2 (03:37→17:50)
[2022-08-21] MEDS: ROCURONIUM 500 MG in SODIUM CHLORIDE 0.9% 500 ML IV PRN ×2 (03:40→13:58)
[2022-08-21 04:28] LABS: Arterial Base Excess iSTAT -4 MMOL/L (-2.5-2.5); Arterial Bicarbonate iSTAT 26.7 MMOL/L (20-26); Arterial O2 Saturation iSTAT 88 % (95-100); Arterial PCO2 iSTAT 91 MM HG (35-48); Arterial PO2 iSTAT 78 MM HG (80-95); Arterial Total CO2 iSTAT 29 MMO/L (23-27); Arterial pH iSTAT 7.078 (7.35-7.45)
[2022-08-21 04:40] LABS: Basophils # 0.1 10*3/uL (0.0-0.2); Basophils % 0.2 % (0.0-0.8); Hematocrit 30.3 VOL% (42.0-52.0); Hemoglobin 9.2 GM/DL (14.0-18.0); Immature Granulocytes % 3.7 %; Immature Granulocytes Absolute 1.16 #; Lymphocytes # 0.3 10*3/uL (1.4-4.0); Lymphocytes % 0.9 % (21.2-54.2); Mean Corpuscular HGB Conc 30.4 GM/DL (32-36); Mean Corpuscular Volume 105.2 FL (87-102); Mean Platelet Volume 9.8 FL (9.6-12.0); Monocytes # 1.4 10*3/uL (0.11-0.8); Monocytes % 4.5 % (1.7-12.7); NRBC # 0.02 10*3/uL; Neutrophils % 90.7 % (38.7-73.9); Platelet Count 140 T/CUMM (130-400); Red Blood Count 2.88 MC/CUMM (3.8-5.5); Red Cell Distribution Width 14.5 % (9.3-17.3); White Blood Count 31.2 T/CUMM (4-12)
[2022-08-21 04:57] LABS: Alanine Aminotransferase 27 U/L (16-61); Alkaline Phosphatase 98 U/L (45-117); Aspartate Amino Transferase 29 U/L (0-37); Bilirubin,Total < 0.39 MG/DL (0.20-1.00); Blood Urea Nitrogen 163 MG/DL (7-18); Calcium 7.1 MG/DL (8.5-10.1); Carbon Dioxide 25 MMOL/L (21-32); Chloride 106 MMOL/L (98-107); Glucose 177 MG/DL (74-106); Osmolality,Calculated 336.4 MOS/KG (273-304); Potassium 5.8 MMOL/L (3.5-5.1); Sodium 140 MMOL/L (136-145); Total Protein 5.2 G/DL (6.4-8.2)
[2022-08-21] MEDS: methylPREDNISolone SOD SUC 125 MG/2 ML VIAL IV SCH ×4 (05:03→23:41)
[2022-08-21] MEDS: METOCLOPRAMIDE 10 MG/2 ML VIAL IV SCH ×4 (05:04→23:49)
[2022-08-21] MEDS: FAMOTIDINE 20 MG/2 ML VIAL IV SCH ×2 (05:06→17:19)
[2022-08-21 05:08] LABS: Band Neutrophils 1 % (0-10); Lymphocytes 3 % (20-55); Platelet Estimate Normal; Total Cells Counted 100
[2022-08-21 05:14] LABS: Phosphorous 9.8 MG/DL (2.5-4.9); Uric Acid 9.6 MG/DL (3.5-7.2)
[2022-08-21] MEDS: SODIUM BICARB INJ 100 MEQ in SODIUM CHLORIDE 0.45% 1,000 ML IV SCH ×2 (07:09→17:51)
[2022-08-21] MEDS: NOREPINEPHRINE DRIP 8 MG/250 ML PREMIX IV PRN (08:44)
[2022-08-21] MEDS: FOLIC ACID 1 MG TABLET PO SCH (08:59)
[2022-08-21] MEDS: POLYETHYLENE GLYCOL POWDER 17 GM PACK PO SCH ×2 (08:59→20:31)
[2022-08-21] MEDS: CETIRIZINE 10 MG TABLET PO SCH (09:00)
[2022-08-21] MEDS: ASCORBIC ACID 500 MG TABLET PO SCH ×2 (09:00→20:32)
[2022-08-21] MEDS: ZINC SULFATE 220 MG CAPSULE PO SCH (09:00)
[2022-08-21] MEDS: CHOLECALCIFEROL 5,000 UNIT TABLET PO SCH ×2 (09:00→20:32)
[2022-08-21] MEDS: MINERAL OIL/PETROLATUM OPH OINT 3.5 GM TUBE BOTH EYES SCH ×2 (09:02→21:22)
[2022-08-21] MEDS: ATORVASTATIN 20 MG TABLET PO SCH (09:05)
[2022-08-21] MEDS: ASPIRIN CHEW 81 MG TABLET PO SCH (09:05)
[2022-08-21] MEDS: MIDAZOLAM DRIP 100 MG/100 ML PREMIX IV PRN (09:44)
[2022-08-21] MEDS: FONDAPARINUX 7.5 MG/0.6 ML SYRINGE SUBCUT SCH (11:18)
[2022-08-21 16:21] LABS: Herpesvirus 7 IgM Ab by IFA <1:20
[2022-08-21] MEDS: MICAFUNGIN 150 MG in SODIUM CHLORIDE 0.9% 100 ML IV SCH (17:19)
[2022-08-21] MEDS: MELATONIN 3 MG TABLET PO SCH (20:31)
[2022-08-21] MEDS: cefTRIAXone 1,000 MG in SODIUM CHLORIDE 0.9% 100 ML IV SCH (21:18)
[2022-08-22] MEDS: NOREPINEPHRINE DRIP 8 MG/250 ML PREMIX IV PRN ×3 (00:03→19:50)
[2022-08-22] MEDS: ROCURONIUM 500 MG in SODIUM CHLORIDE 0.9% 500 ML IV PRN (00:22)
[2022-08-22] MEDS: MIDAZOLAM DRIP 100 MG/100 ML PREMIX IV PRN ×2 (01:14→14:01)
[2022-08-22 03:30] LABS: Arterial Base Excess iSTAT -4 MMOL/L (-2.5-2.5); Arterial O2 Saturation iSTAT 88 % (95-100); Arterial PCO2 iSTAT 78 MM HG (35-48); Arterial PO2 iSTAT 75 MM HG (80-95); Arterial Total CO2 iSTAT 28 MMO/L (23-27); Arterial pH iSTAT 7.132 (7.35-7.45)
[2022-08-22] MEDS: FAMOTIDINE 20 MG/2 ML VIAL IV SCH ×2 (03:54→15:34)
[2022-08-22] MEDS: SODIUM BICARB INJ 100 MEQ in SODIUM CHLORIDE 0.45% 1,000 ML IV SCH ×2 (04:20→15:34)
[2022-08-22 04:22] LABS: Basophils % 0.1 % (0.0-0.8); Hematocrit 27.8 VOL% (42.0-52.0); Hemoglobin 8.4 GM/DL (14.0-18.0); Immature Granulocytes % 3.9 %; Immature Granulocytes Absolute 1.05 #; Lymphocytes # 0.4 10*3/uL (1.4-4.0); Lymphocytes % 1.6 % (21.2-54.2); Mean Corpuscular HGB Conc 30.2 GM/DL (32-36); Mean Corpuscular Volume 104.1 FL (87-102); Mean Platelet Volume 10.4 FL (9.6-12.0); Monocytes # 1.2 10*3/uL (0.11-0.8); Monocytes % 4.6 % (1.7-12.7); NRBC # 0.02 10*3/uL; Neutrophils % 89.8 % (38.7-73.9); Platelet Count 113 T/CUMM (130-400); Red Blood Count 2.67 MC/CUMM (3.8-5.5); Red Cell Distribution Width 14.5 % (9.3-17.3)
[2022-08-22 04:42] LABS: Calcium 6.8 MG/DL (8.5-10.1); Osmolality,Calculated 343.3 MOS/KG (273-304); Potassium 5.8 MMOL/L (3.5-5.1)
[2022-08-22 04:47] LABS: Lymphocytes 2 % (20-55); Total Cells Counted 100
[2022-08-22 04:48] LABS: Macrocytosis Slight; Platelet Estimate Decreased
[2022-08-22] MEDS: methylPREDNISolone SOD SUC 125 MG/2 ML VIAL IV SCH ×3 (05:47→17:12)
[2022-08-22] MEDS: METOCLOPRAMIDE 10 MG/2 ML VIAL IV SCH ×3 (05:47→17:38)
[2022-08-22] MEDS: ALBUTEROL/IPRATROPIUM 3 ML NEB RESP TX SCH ×4 (07:20→19:24)
[2022-08-22 07:21] LABS: Fungitell Quantitative Value < 31 pg/mL (<60 pg/mL)
[2022-08-22] MEDS: MINERAL OIL/PETROLATUM OPH OINT 3.5 GM TUBE BOTH EYES SCH ×2 (09:23→22:11)
[2022-08-22] MEDS: FONDAPARINUX 7.5 MG/0.6 ML SYRINGE SUBCUT SCH (09:27)
[2022-08-22] MEDS: fentaNYL INJ 2,500 MCG in SODIUM CHLORIDE 0.9% 75 ML IV PRN (10:33)
[2022-08-22] MEDS: MICAFUNGIN 150 MG in SODIUM CHLORIDE 0.9% 100 ML IV SCH (17:11)
[2022-08-22] MEDS: cefTRIAXone 1,000 MG in SODIUM CHLORIDE 0.9% 100 ML IV SCH (22:11)
== END 2022-08-22 20:53 | disposition expired | DRG 207 ==
LOC: N.ED 11:38 → N.EDINP 18:28 → SUATTDRO 18:28 → N.3E 21:22 → N.CC 08-10 21:17
PROVIDERS: ADMIT Internal Medicine Geriatric Medicine; ATTEND Internal Medicine